=== PATIENT | male | born 1990 | race American Indian/Alaskan Native ===

== ENCOUNTER 2017-10-03 20:51 | Emergency (ER) | payer SELFPAY ==
[2017-10-03 22:09] VITALS: BP 112/72
[2017-10-03] MEDS ORDERED: NACL 0.9% 1000 ML 1,000 ML IV ONE (22:34)
[2017-10-03] MEDS ORDERED: DILAUDID IV ONE (22:34)
[2017-10-03] MEDS ORDERED: ZOFRAN IV ONE (22:35)
--- NOTE | 2017-10-03 22:39 | Emergency Department Report ---
HPI - General Chief Complaint: Urogenital-Male Time Seen by Provider: 10/03/17 22:29 - HPI HPI: 27-year-old [place] male coming in is left flank and left lower quadrant pain starting on this morning patient had a history of kidney stones. he states that her pain is accompanied by nausea, vomiting and urinary symptoms but no diarrhea. Patient has not taking any medication at home for his symptoms. he denies any exacerbating factors. he denies any alleviating factors. he denies any recent travel, or unusual foods. She denies any sick contacts. Patient had bilateral ureteral stents placed for ureteral stones and [place] this past year. MD Complaint: abdominal pain -: Gradual Location: Left flank Radiation: none Migration to: no migration Severity scale (0 -10): 10 Quality: sharp Improves With: nothing Associated Symptoms: nausea, vomiting, chills ED Past Medical Hx - Past Medical History Additional medical history: kidney problems - Surgical History Past Surgical History?: Yes Additional Surgical History: stents placed in both kidneys in Dec - Social History Smoking Status: Current Every Day Smoker Substance Use Type: None - Medications Home Medications: Home Medications Medication Instructions Recorded Confirmed Last Taken Type Sulfamethoxazole/Trimethoprim 1 each PO BID #14 tablet 10/04/17 Unknown Rx [Bactrim DS TAB] oxyCODONE /ACETAMINOPHEN [Percocet 1 tab PO Q6HR PRN #7 tablet 10/04/17 Unknown Rx 5/325] ED Review of Systems ROS: Stated complaint: URINATING BLOOD; STENT PLACED IN DEC Other details as noted in HPI Physical Exam - Physical Exam Vital Signs: Vital Signs 10/03/17 22:04 Temperature 97.4 F L Pulse Rate 78 Respiratory 18 Rate Blood Pressure 112/72 O2 Sat by Pulse 98 Oximetry Physical Exam: - Physical Exam Physical Exam: - General Limitations: No Limitations General appearance: alert, in no apparent distress, obese - Head Head exam: Present: atraumatic, normocephalic - Eye Eye exam: Present: normal appearance - ENT ENT exam: Present: mucous membranes moist - Neck Neck exam: Present: normal inspection - Respiratory Respiratory exam: Present: normal lung sounds bilaterally. Absent: respiratory distress - Cardiovascular Cardiovascular Exam: Present: normal rhythm, tachycardia. Absent: systolic murmur, diastolic murmur, rubs, gallop - GI/Abdominal GI/Abdominal exam: Present: soft, normal bowel sounds - Extremities Exam Extremities exam: Present: normal inspection - Back Exam Back exam: Present: normal inspection - Neurological Exam Neurological exam: Present: alert, oriented X3 - Psychiatric Psychiatric exam: normal affect and mood - Skin Skin exam: Present: warm, dry, intact, normal color. Absent: rash ED Course Vital Signs 10/03/17 22:04 Temperature 97.4 F L Pulse Rate 78 Respiratory 18 Rate Blood Pressure 112/72 O2 Sat by Pulse 98 Oximetry - Reevaluation(s) Reevaluation #1: 10/04/17 01:53 Patient is pain-free and wants to go home, advised to follow-up tomorrow with his urologist, he was understanding. No fever, no chills vital signs stables at disposition. Advised to return to ED symptoms worsen overnight. ED Medical Decision Making - Lab Data Result diagrams: 10/03/17 22:30 10/03/17 22:30 Critical care attestation.: If time is entered above; I have spent that time in minutes in the direct care of this critically ill patient, excluding procedure time. ED Disposition Clinical Impression: Kidney stone Disposition: DC-01 TO HOME OR SELFCARE Is pt being admited?: No Does the pt Need Aspirin: No Condition: Stable Instructions: Kidney Stones (ED) Prescriptions: oxyCODONE /ACETAMINOPHEN [Percocet 5/325] 1 tab PO Q6HR PRN #7 tablet PRN Reason: Pain Sulfamethoxazole/Trimethoprim [Bactrim DS TAB] 1 each PO BID #14 tablet Referrals: AMARILYS CORLEY MD [Primary Care Provider] - 3-5 Days MINO BAZAN MD [Staff Physician] - 24 Hours
[2017-10-03 22:44] LABS: Basophils % (Auto) 0.5 % (0.0-1.8); Eosinophils # (Auto) 0.1 K/mm3 (0.0-0.4); Eosinophils % (Auto) 1.4 % (0.0-4.3); Hematocrit 47.9 % (35.5-45.6); Hemoglobin 15.9 gm/dl (11.8-15.2); Lymphocytes # (Auto) 2.8 K/mm3 (1.2-5.4); Lymphocytes % (Auto) 32.1 % (13.4-35.0); Mean Corpuscular HGB Conc 33 % (32-34); Mean Corpuscular Hemoglobin 30 pg (28-32); Mean Corpuscular Volume 90 fl (84-94); Monocytes # (Auto) 0.5 K/mm3 (0.0-0.8); Monocytes % (Auto) 5.9 % (0.0-7.3); Platelet Count 268 K/mm3 (140-440); Red Blood Count 5.32 M/mm3 (3.65-5.03); Red Cell Distribution Width 12.9 % (13.2-15.2)
[2017-10-03 23:01] LABS: BUN/Creatinine Ratio 17; Blood Urea Nitrogen 15 mg/dL (9-20); Calcium 9.3 mg/dL (8.4-10.2); Hemolysis Index 13
[2017-10-03 23:35] LABS: Bacteria,Urine 1+ /HPF (Negative); Bilirubin,Urine NEG (Negative); Blood,Urine LG (Negative); Color,Urine Red (Yellow); Mucus,Urine 2+ /HPF; Urobilinogen,Urine < 2.0 mg/dL (<2.0)
[2017-10-03 23:40] LABS: RBC,Urine > 182.0 /HPF (0.0-6.0)
--- NOTE | 2017-10-04 01:01 | Cat Scan Report ---
FINAL REPORT PROCEDURE: CT ABDOMEN PELVIS WO/W CON TECHNIQUE: Computerized axial tomography of the abdomen and pelvis was performed without contrast followed by computerized axial tomography of the abdomen and pelvis after the IV injection of iodinated nonionic contrast. HISTORY: abd pain, h/o kidney stones, s/p stent, hematuria COMPARISON: No prior studies are available for comparison. FINDINGS: Lower Lung santizo: No focal abnormality seen. Upper Abdomen: The liver, the gallbladder, the spleen and adrenal glands as well as the pancreas are unremarkable. Kidneys, Ureters and Urinary bladder: On the right side there is a double ended pigtail catheter extending from the renal pelvis of the right kidney to the urinary bladder. There is no hydronephrosis on the right. No definite ureteral calculi are seen on the right. On the left there is a extrarenal pelvis present. There is also moderate left-sided hydronephrosis. A double ended pigtail catheter seen extending from the inferior aspect of the renal pelvis to the urinary bladder. There are 2 nonobstructing renal calculi in the left kidney, 1 in the upper 3rd 1 in the lower 3rd. These measure up to 4.2 x 2.1 millimeters. No definite ureteral calculi are visualized. Other than the distal ends of the pigtail stents urinary bladder is otherwise unremarkable. Retroperitoneum: The abdominal aorta appears normal. No aneurysm is visualized. Nonspecific subcentimeter lymph nodes are seen in the retroperitoneum. No pathologically enlarged lymph nodes are identified. Bowel: There is no evidence of bowel obstruction. There is no ascites or free intraperitoneal gas. The cecum projects into the pelvis otherwise is unremarkable. The colon shows no focal abnormality. The appendix is not visualized. Reproductive organs: Prostate gland does not appear to be enlarged. Other: No acute bony abnormalities are identified. Portion of intramedullary rodding depression screw device of the right hip is visualized. There is moderate lumbar scoliosis present convex to the right apex L3. IMPRESSION: Bilateral double ended pigtail catheters are seen extending from the renal pelvis of the right and left kidney to the urinary bladder. On the left there is moderate hydronephrosis. Small nonobstructing renal calculi are within the left kidney as described.. No ureteral calculi are seen on the left or right. Intramedullary dyan and compression screw device seen in the right hip. There is moderate lumbar scoliosis.
[2017-10-04] MEDS ORDERED: TORADOL IV ONE (01:12)
== END 2017-10-04 01:41 | disposition home or self-care (01) ==
LOC: ED 20:51
DX: N20.0 Calculus of kidney (principal); F17.200 Nicotine dependence, unspecified, uncomplicated
CPT/HCPCS: 36415; 74178; 80048; 81001; 85025; 96361; 96374; 96375; 99284; J1170; J1885; J2405; J7030; Q9967

== ENCOUNTER 2017-10-07 19:35 | Inpatient (IN) | payer OTHER ==
--- NOTE | 2017-10-07 19:54 | Emergency Department Report ---
ED General Adult HPI - General Chief complaint: Abdominal Pain Stated complaint: ABD PAIN Time Seen by Provider: 10/07/17 19:51 Source: patient, family, EMS (verbal report received from EMS.ems notes not available at time of chart dictation), RN notes reviewed, old records reviewed Mode of arrival: Stretcher Limitations: Altered Mental Status, Other (patient is a poor historian) - History of Present Illness Initial comments: This is a 27-year-old male who was previously on known to this provider. Patient has a history of bilateral renal stent, which he reports was placed by [facility] urology. He was placed secondary to obstructing stones. Patient is brought to the hospital by EMS for bilateral flank pain. The flank pain has been present for a few days. Patient was seen in this ER a few days ago for similar symptoms, had a noncontrast CT scan of the abdomen and pelvis which demonstrated appropriate stent placement, a urinalysis that suggests a urinary tract infection, and patient was discharged with Bactrim. As per his sample body builder, the patient has not been taking the antibiotics. Patient's pain got worse, and he called 911, EMS gave Zofran, Toradol, and normal saline. As per verbal report from EMS, the patient has been having breath-holding spells, secondary to pain, and had a few episodes of diminished consciousness secondary to breath-holding spells. EMS reported no unprovoked syncope. In the ER, the patient complains of shortness of breath, flank pain and weakness. He cannot describe radiation, exacerbating or relieving factors. He does report "I think I have a kidney infection." He is not homicidal or suicidal/testicular pain. -: Gradual Location: back Associated Symptoms: diaphoresis, loss of appetite, malaise, shortness of breath , syncope, weakness. denies: chest pain, cough, fever/chills, rash - Related Data Home Medications Medication Instructions Recorded Confirmed Last Taken Acetaminophen [Tylenol Extra 500 mg PO QID PRN 10/07/17 10/07/17 10/07/17 Strength] Allergies Allergy/AdvReac Type Severity Reaction Status Date / Time tramadol Allergy Vomiting Verified 10/03/17 22:03 ED Review of Systems ROS: Stated complaint: ABD PAIN Other details as noted in HPI Constitutional: denies: fever Eyes: denies: vision change ENT: denies: epistaxis Respiratory: shortness of breath Cardiovascular: denies: chest pain Gastrointestinal: denies: vomiting Genitourinary: denies: testicular pain Musculoskeletal: back pain Skin: denies: lesions Neurological: weakness Psychiatric: anxiety ED Past Medical Hx - Past Medical History Previous Medical History?: Yes Hx Kidney Stones: Yes Additional medical history: kidney problems - Surgical History Past Surgical History?: Yes Additional Surgical History: stents placed in both kidneys in Dec - Social History Smoking Status: Unknown if ever smoked - Medications Home Medications: Home Medications Medication Instructions Recorded Confirmed Last Taken Type Acetaminophen [Tylenol Extra 500 mg PO QID PRN 10/07/17 10/07/17 10/07/17 History Strength] ED Physical Exam - General Limitations: Other (patient appears distressed) General appearance: alert, in distress - Head Head exam: Present: atraumatic, normocephalic - Eye Eye exam: Present: normal appearance, EOMI - ENT ENT exam: Present: normal exam, normal orophraynx, mucous membranes moist, normal external ear exam - Neck Neck exam: Present: normal inspection, full ROM - Respiratory Respiratory exam: Present: normal lung sounds bilaterally. Absent: respiratory distress - Cardiovascular Cardiovascular Exam: Present: regular rate, normal rhythm, normal heart sounds. Absent: bradycardia, tachycardia, irregular rhythm, systolic murmur, diastolic murmur, rubs, gallop - GI/Abdominal GI/Abdominal exam: Present: soft, normal bowel sounds. Absent: distended, tenderness, guarding, rebound, rigid, pulsatile mass - Rectal Rectal exam: Present: normal inspection, other (escorted by nurse Livia tierney) - exam: Present: normal inspection - Extremities Exam Extremities exam: Present: normal inspection, full ROM, normal capillary refill. Absent: tenderness, pedal edema, joint swelling, calf tenderness - Back Exam Back exam: Present: normal inspection, full ROM, CVA tenderness (R), CVA tenderness (L). Absent: tenderness, paraspinal tenderness, vertebral tenderness - Neurological Exam Neurological exam: Present: alert, oriented X3, CN II-XII intact, other ( Extraocular movements intact. Tongue midline. No facial droop. Facial sensation intact to light touch in the V1, V2, V3 distribution bilaterally. 5 and 5 strength in 4 extremities.. Sensation is intact to light touch in 4 extremities.). Absent: motor sensory deficit - Psychiatric Psychiatric exam: Present: anxious - Skin Skin exam: Present: warm, dry, intact, normal color. Absent: rash ED Course Vital Signs 10/07/17 10/07/17 10/07/17 19:40 19:57 20:00 Temperature 98.7 F Pulse Rate 75 82 Respiratory 18 24 21 Rate Blood Pressure 147/73 161/88 O2 Sat by Pulse 98 97 100 Oximetry 10/07/17 10/07/17 10/07/17 20:10 20:15 20:56 Temperature Pulse Rate 86 Respiratory 20 10 L Rate Blood Pressure 130/99 140/81 O2 Sat by Pulse 100 Oximetry 10/07/17 10/07/17 10/07/17 21:00 21:15 21:30 Temperature Pulse Rate 84 86 74 Respiratory 14 15 17 Rate Blood Pressure 136/87 148/82 107/56 O2 Sat by Pulse 100 100 Oximetry 10/07/17 10/07/17 10/07/17 21:45 22:00 22:15 Temperature Pulse Rate 99 H 84 76 Respiratory 23 18 14 Rate Blood Pressure 127/73 134/88 130/90 O2 Sat by Pulse 100 99 Oximetry 10/07/17 10/07/17 10/07/17 22:30 22:45 23:00 Temperature Pulse Rate 98 H 94 H 100 H Respiratory 12 14 14 Rate Blood Pressure 135/77 129/87 135/74 O2 Sat by Pulse 99 98 89 Oximetry - Reevaluation(s) Reevaluation #1: 10/07/17 21:30 Differential diagnosis, including but not limited to: Pneumonia, pyelonephritis , breath holding spells, urinary tract infection, drug use, anxiety, conversion disorder Assessment and plan: 27-year-old male, history of bilateral renal stent, noncontrast CT scan of the abdomen and pelvis a few days ago demonstrated appropriate placement of renal stent, left-sided hydronephrosis, moderate, with no obstruction, urinalysis that suggested urinary tract infection, discharge and antibiotics but noncompliant with worsening symptoms. Patient is currently alert name, location and month, follows commands, has a GCS of 15, with an NIH score of 0. Case was discussed with consulting urology specialist contract driver, Dr. Mckee, I described the patient's physical exam, presentation, recent CT scan of the abdomen and pelvis results, and he indicated that the patient did not require any emergent urologic intervention or consultation at this time, he did indicate that if the patient was found to have worsening hydronephrosis that he might require a percutaneous nephrostomy to facilitate drainage. Patient was initially having some breath holding spells in the ER, it was initially unresponsive intermittently, although this may been behavioral. Patient was noted to be speaking to nursing staff and to sample body builder upon arrival. Therefore , a noncontrast CT scan of the abdomen and pelvis with reordered along with a noncontrast CT scan of the brain which was negative. Patient was given Toradol prior to my arrival, therefore he was treated with fentanyl, hydromorphone, and lidocaine. Reevaluation #2: 10/07/17 22:[address] scan of the abdomen and pelvis: IMPRESSION: Urinary stent extending from the renal pelvis on each side to the urinary bladder, similar to the prior exam. Left renal stone. Improvement of left hydronephrosis.. With Reevaluation #3: 10/07/17 23:48 Attempted oral challenge with patient, patient failed, vomited up acetaminophen , and 300 mL of fluid. He is also somewhat unsteady and unable to walk with a steady gait. He is therefore not suitable for discharge at this time, especially after getting normal saline IV fluid resuscitation, as well as 8 mg of Zofran in total. Additional Reglan is ordered, patient will be admitted to the hospital for pyelonephritis, inability to tolerate liquid feeds, Hospital physician has been paged to arrange admission. Reevaluation #4: 10/07/17 23:59 Case is presented to the Hospital physician, Dr. Qiu, she accepts the patient to the medical service. ED Medical Decision Making - Lab Data Result diagrams: 10/07/17 20:10 10/07/17 20:10 Vital Signs 10/07/17 10/07/17 10/07/17 19:40 19:57 20:00 Temperature 98.7 F Pulse Rate 75 82 Respiratory 18 24 21 Rate Blood Pressure 147/73 161/88 O2 Sat by Pulse 98 97 100 Oximetry 10/07/17 20:10 Temperature Pulse Rate Respiratory 20 Rate Blood Pressure O2 Sat by Pulse Oximetry Lab Results 10/07/17 10/07/17 10/07/17 Range/Units 20:10 20:10 20:10 WBC 10.3 (4.5-11.0) K/mm3 RBC 4.84 (3.65-5.03) M/mm3 Hgb 14.3 (11.8-15.2) gm/dl Hct 44.0 (35.5-45.6) % MCV 91 (84-94) fl MCH 30 (28-32) pg MCHC 33 (32-34) % RDW 12.8 L (13.2-15.2) % Plt Count 278 (140-440) K/mm3 Lymph % (Auto) 20.4 (13.4-35.0) % [place] % (Auto) 4.6 (0.0-7.3) % Eos % (Auto) 0.6 (0.0-4.3) % Baso % (Auto) 0.3 (0.0-1.8) % Lymph # 2.1 (1.2-5.4) K/mm3 [place] # 0.5 (0.0-0.8) K/mm3 Eos # 0.1 (0.0-0.4) K/mm3 Baso # 0.0 (0.0-0.1) K/mm3 Seg Neutrophils % 74.1 H (40.0-70.0) % Seg Neutrophils # 7.6 (1.8-7.7) K/mm3 Sodium 142 (137-145) mmol/L Potassium 3.4 L (3.6-5.0) mmol/L Chloride 102.7 (98-107) mmol/L Carbon Dioxide 21 L (22-30) mmol/L Anion Gap 22 mmol/L BUN 17 (9-20) mg/dL Creatinine 0.8 (0.8-1.5) mg/dL Estimated GFR > 60 ml/min BUN/Creatinine Ratio 21 % Glucose 128 H (75-100) mg/dL Lactic Acid (0.7-2.0) mmol/L Calcium 8.9 (8.4-10.2) mg/dL Total Creatine Kinase 124 (55-170) units/L Urine Color (Yellow) Urine Turbidity (Clear) Urine pH (5.0-7.0) Ur Specific [place] (1.003-1.030) Urine Protein (Negative) mg/dL Urine Glucose (UA) (Negative) mg/dL Urine Ketones (Negative) mg/dL Urine Blood (Negative) Urine Nitrite (Negative) Urine Bilirubin (Negative) Urine Urobilinogen (<2.0) mg/dL Ur Leukocyte Esterase (Negative) Urine WBC (Auto) (0.0-6.0) /HPF Urine RBC (Auto) (0.0-6.0) /HPF Urine Bacteria (Auto) (Negative) /HPF Urine Mucus /HPF Salicylates (2.8-20.0) mg/dL Urine Opiates Screen Presumptive negative Urine Methadone Screen Presumptive negative Acetaminophen (10.0-30.0) ug/mL Ur Barbiturates Screen Presumptive negative Ur Phencyclidine Scrn Presumptive negative Ur Amphetamines Screen Presumptive positive U Benzodiazepines Scrn Presumptive negative Urine Cocaine Screen Presumptive negative U Marijuana (THC) Screen Presumptive positive Drugs of Abuse Note Disclamer Plasma/Serum Alcohol (0-0.07) % 10/07/17 10/07/17 10/07/17 Range/Units 20:10 20:10 20:10 WBC (4.5-11.0) K/mm3 RBC (3.65-5.03) M/mm3 Hgb (11.8-15.2) gm/dl Hct (35.5-45.6) % MCV (84-94) fl MCH (28-32) pg MCHC (32-34) % RDW (13.2-15.2) % Plt Count (140-440) K/mm3 Lymph % (Auto) (13.4-35.0) % [place] % (Auto) (0.0-7.3) % Eos % (Auto) (0.0-4.3) % Baso % (Auto) (0.0-1.8) % Lymph # (1.2-5.4) K/mm3 [place] # (0.0-0.8) K/mm3 Eos # (0.0-0.4) K/mm3 Baso # (0.0-0.1) K/mm3 Seg Neutrophils % (40.0-70.0) % Seg Neutrophils # (1.8-7.7) K/mm3 Sodium (137-145) mmol/L Potassium (3.6-5.0) mmol/L Chloride (98-107) mmol/L Carbon Dioxide (22-30) mmol/L Anion Gap mmol/L BUN (9-20) mg/dL Creatinine (0.8-1.5) mg/dL Estimated GFR ml/min BUN/Creatinine Ratio % Glucose (75-100) mg/dL Lactic Acid 2.00 (0.7-2.0) mmol/L Calcium (8.4-10.2) mg/dL Total Creatine Kinase (55-170) units/L Urine Color (Yellow) Urine Turbidity (Clear) Urine pH (5.0-7.0) Ur Specific [place] (1.003-1.030) Urine Protein (Negative) mg/dL Urine Glucose (UA) (Negative) mg/dL Urine Ketones (Negative) mg/dL Urine Blood (Negative) Urine Nitrite (Negative) Urine Bilirubin (Negative) Urine Urobilinogen (<2.0) mg/dL Ur Leukocyte Esterase (Negative) Urine WBC (Auto) (0.0-6.0) /HPF Urine RBC (Auto) (0.0-6.0) /HPF Urine Bacteria (Auto) (Negative) /HPF Urine Mucus /HPF Salicylates < 0.3 L (2.8-20.0) mg/dL Urine Opiates Screen Urine Methadone Screen Acetaminophen < 5.0 L (10.0-30.0) ug/mL Ur Barbiturates Screen Ur Phencyclidine Scrn Ur Amphetamines Screen U Benzodiazepines Scrn Urine Cocaine Screen U Marijuana (THC) Screen Drugs of Abuse Note Plasma/Serum Alcohol (0-0.07) % 10/07/17 10/07/17 Range/Units 20:10 20:14 WBC (4.5-11.0) K/mm3 RBC (3.65-5.03) M/mm3 Hgb (11.8-15.2) gm/dl Hct (35.5-45.6) % MCV (84-94) fl MCH (28-32) pg MCHC (32-34) % RDW (13.2-15.2) % Plt Count (140-440) K/mm3 Lymph % (Auto) (13.4-35.0) % [place] % (Auto) (0.0-7.3) % Eos % (Auto) (0.0-4.3) % Baso % (Auto) (0.0-1.8) % Lymph # (1.2-5.4) K/mm3 [place] # (0.0-0.8) K/mm3 Eos # (0.0-0.4) K/mm3 Baso # (0.0-0.1) K/mm3 Seg Neutrophils % (40.0-70.0) % Seg Neutrophils # (1.8-7.7) K/mm3 Sodium (137-145) mmol/L Potassium (3.6-5.0) mmol/L Chloride (98-107) mmol/L Carbon Dioxide (22-30) mmol/L Anion Gap mmol/L BUN (9-20) mg/dL Creatinine (0.8-1.5) mg/dL Estimated GFR ml/min BUN/Creatinine Ratio % Glucose (75-100) mg/dL Lactic Acid (0.7-2.0) mmol/L Calcium (8.4-10.2) mg/dL Total Creatine Kinase (55-170) units/L Urine Color [place] (Yellow) Urine Turbidity Clear (Clear) Urine pH 6.0 (5.0-7.0) Ur Specific [place] 1.025 (1.003-1.030) Urine Protein 100 mg/dl (Negative) mg/dL Urine Glucose (UA) Neg (Negative) mg/dL Urine Ketones Tr (Negative) mg/dL Urine Blood Lg (Negative) Urine Nitrite Neg (Negative) Urine Bilirubin Neg (Negative) Urine Urobilinogen < 2.0 (<2.0) mg/dL Ur Leukocyte Esterase Mod (Negative) Urine WBC (Auto) 115.0 H (0.0-6.0) /HPF Urine RBC (Auto) > 182.0 (0.0-6.0) /HPF Urine Bacteria (Auto) 1+ (Negative) /HPF Urine Mucus 3+ /HPF Salicylates (2.8-20.0) mg/dL Urine Opiates Screen Urine Methadone Screen Acetaminophen (10.0-30.0) ug/mL Ur Barbiturates Screen Ur Phencyclidine Scrn Ur Amphetamines Screen U Benzodiazepines Scrn Urine Cocaine Screen U Marijuana (THC) Screen Drugs of Abuse Note Plasma/Serum Alcohol < 0.01 (0-0.07) % - EKG Data -: EKG Interpreted by Me - EKG Data When compared to previous EKG there are: previous EKG unavailable 10/07/17 21:33 Normal sinus, 93 beats minute, sinus arrhythmia, high left ventricular voltage, abnormal EKG, not morphologically consistent with ST elevation myocardial infarction. - Radiology Data Radiology results: report reviewed, image reviewed interpreted by me: X-ray of the chest, interpreted by me: No acute disease eport Referring Physician: SIMBA MILLER Patient Name: FRANSICO MELGAR Date of : 1990 Sex: Male Report Date: 2017-10-04 Report Status: Finalized Findings [facility] [address] [place] [address] Cat Scan Report Signed Patient: FRANSICO MELGAR MR#: [id number] : 1990 Acct:[id number] Age/Sex: 27 / M ADM Date: 10/03/17 Loc: ED Attending Dr: Ordering Physician: SIMBA MILLER MD Date of Service: 10/04/17 Procedure(s): CT abdomen pelvis wo/w con Accession Number(s): [id number] cc: SIMBA MILLER MD FINAL REPORT PROCEDURE: CT ABDOMEN PELVIS WO/W CON TECHNIQUE: Computerized axial tomography of the abdomen and pelvis was performed without contrast followed by computerized axial tomography of the abdomen and pelvis after the IV injection of iodinated nonionic contrast. HISTORY: abd pain, h/o kidney stones, s/p stent, hematuria COMPARISON: No prior studies are available for comparison. FINDINGS: Lower Lung santizo: No focal abnormality seen. Upper Abdomen: The liver, the gallbladder, the spleen and adrenal glands as well as the pancreas are unremarkable. Kidneys, Ureters and Urinary bladder: On the right side there is a double ended pigtail catheter extending from the renal pelvis of the right kidney to the urinary bladder. There is no hydronephrosis on the right. No definite ureteral calculi are seen on the right. On the left there is a extrarenal pelvis present. There is also moderate left-sided hydronephrosis. A double ended pigtail catheter seen extending from the inferior aspect of the renal pelvis to the urinary bladder. There are 2 nonobstructing renal calculi in the left kidney, 1 in the upper 3rd 1 in the lower 3rd. These measure up to 4.2 x 2.1 millimeters. No definite ureteral calculi are visualized. Other than the distal ends of the pigtail stents urinary bladder is otherwise unremarkable. Retroperitoneum: The abdominal aorta appears normal. No aneurysm is visualized. Nonspecific subcentimeter lymph nodes are seen in the retroperitoneum. No pathologically enlarged lymph nodes are identified. Bowel: There is no evidence of bowel obstruction. There is no ascites or free intraperitoneal gas. The cecum projects into the pelvis otherwise is unremarkable. The colon shows no focal abnormality. The appendix is not visualized. Reproductive organs: Prostate gland does not appear to be enlarged. Other: No acute bony abnormalities are identified. Portion of intramedullary rodding depression screw device of the right hip is visualized. There is moderate lumbar scoliosis present convex to the right apex L3. IMPRESSION: Bilateral double ended pigtail catheters are seen extending from the renal pelvis of the right and left kidney to the urinary bladder. On the left there is moderate hydronephrosis. Small nonobstructing renal calculi are within the left kidney as described.. No ureteral calculi are seen on the left or right. Intramedullary dyan and compression screw device seen in the right hip. There is moderate lumbar scoliosis. Transcribed By: DFN Dictated By: MATT RIOS MD Electronically Authenticated By: MATT RIOS MD Signed Date/Time: 10/04/[address] scan of the brain: Interpreted by radiology: No acute disease Print Report Referring Physician: AMARILYS ODEN Patient Name: FRANSICO MELGAR Date of : 1990 Sex: Male Report Date: 2017-10-07 Report Status: [place] [address] Cat Scan Report Signed Patient: FRANSICO MELGAR MR#: [id number] : 1990 Acct:[id number] Age/Sex: 27 / M ADM Date: 10/07/17 Loc: ED Attending Dr: Ordering Physician: AMARILYS ODEN MD Date of Service: 10/07/17 Procedure(s): CT abdomen pelvis wo con Accession Number(s): [id number] cc: AMARILYS ODEN MD FINAL REPORT PROCEDURE: CT ABDOMEN PELVIS WO CON TECHNIQUE: Computerized axial tomography of the abdomen and pelvis was performed without intravenous contrast. HISTORY: abd pain ? stent dislodgement COMPARISON: October 04, 2017 FINDINGS: Visualized lower thorax: No significant abnormality. Liver: Normal size and attenuation. Spleen: Normal size and attenuation. Gallbladder and biliary system: Normal. Pancreas: Normal. Adrenals: Normal. Kidneys: Upper pole stone left kidney measuring 0.4 cm. There are stents extending from the renal pelvises on each side to the urinary bladder. There is mild left hydronephrosis with improvement compared to the prior study GI tract: No dilated loops of large or small bowel. Appendix is not visualized. Lymph nodes and mesentery: Normal. Vasculature: Normal. Bladder: Stents on each side.. Reproductive organs: Normal. Peritoneum: No free fluid. Musculoskeletal structures: Fixation screw and dyan in the right proximal femur. Other: None. IMPRESSION: Urinary stent extending from the renal pelvis on each side to the urinary bladder, similar to the prior exam. Left renal stone. Improvement of left hydronephrosis.. With Transcribed By: BRP Dictated By: JAYLAN ROQUE MD Electronically Authenticated By: JAYLAN ROQUE MD Signed Date/Time: 10/07/17 3721 Critical care attestation.: If time is entered above; I have spent that time in minutes in the direct care of this critically ill patient, excluding procedure time. ED Disposition Clinical Impression: Pyelonephritis, Nausea & vomiting Disposition: -09 OP ADMIT IP TO THIS HOSP Is pt being admited?: Yes Condition: Good Referrals: PRIMARY CAREMD [Primary Care Provider] - 3-5 Days
[2017-10-07] MEDS ORDERED: DILAUDID IV ONE (20:03)
[2017-10-07] MEDS ORDERED: ROCEPHIN/NS 1 GM/50 ML 1 GM/50 ML BAG IV ONE (20:08)
[2017-10-07] MEDS ORDERED: LACTATED RINGERS 1,000 ML IV ONE (20:12)
[2017-10-07] MEDS ORDERED: cefTRIAXone 1 GM in NACL 0.9% 20 ML IV ONE (20:15)
[2017-10-07 20:30] LABS: Basophils % (Auto) 0.3 % (0.0-1.8); Eosinophils # (Auto) 0.1 K/mm3 (0.0-0.4); Eosinophils % (Auto) 0.6 % (0.0-4.3); Hemoglobin 14.3 gm/dl (11.8-15.2); Lymphocytes # (Auto) 2.1 K/mm3 (1.2-5.4); Lymphocytes % (Auto) 20.4 % (13.4-35.0); Mean Corpuscular HGB Conc 33 % (32-34); Mean Corpuscular Hemoglobin 30 pg (28-32); Mean Corpuscular Volume 91 fl (84-94); Monocytes # (Auto) 0.5 K/mm3 (0.0-0.8); Monocytes % (Auto) 4.6 % (0.0-7.3); Platelet Count 278 K/mm3 (140-440); Red Blood Count 4.84 M/mm3 (3.65-5.03); Red Cell Distribution Width 12.8 % (13.2-15.2)
[2017-10-07 20:38] LABS: Bacteria,Urine 1+ /HPF (Negative); Bilirubin,Urine NEG (Negative); Blood,Urine LG (Negative); Color,Urine Amber (Yellow); Mucus,Urine 3+ /HPF; Urobilinogen,Urine < 2.0 mg/dL (<2.0)
[2017-10-07 20:40] LABS: RBC,Urine > 182.0 /HPF (0.0-6.0)
[2017-10-07 20:44] LABS: Benzodiazepines Screen,Urine PRESUMPTIVE NEGATIVE; Cocaine Screen,Urine PRESUMPTIVE NEGATIVE; Methadone Screen,Urine PRESUMPTIVE NEGATIVE; Opiate Screen,Urine PRESUMPTIVE NEGATIVE
[2017-10-07 20:46] LABS: BUN/Creatinine Ratio 21; Blood Urea Nitrogen 17 mg/dL (9-20); Calcium 8.9 mg/dL (8.4-10.2); Hemolysis Index 4
[2017-10-07 20:47] LABS: Amphetamine Screen,Urine PRESUMPTIVE POSITIVE; Cannabinoid Screen,Urine PRESUMPTIVE POSITIVE
--- NOTE | 2017-10-07 21:23 | Cat Scan Report ---
FINAL REPORT PROCEDURE: CT HEAD/BRAIN WO CON TECHNIQUE: Computerized tomography of the head was performed without contrast material. HISTORY: ams syncope COMPARISON: No prior studies are available for comparison. FINDINGS: Skull and scalp: Normal. Paranasal sinuses: Normal. Ventricles and subarachnoid spaces: Normal. Cerebrum: No evidence of hemorrhage, acute infarction or mass . Cerebellum and brainstem: No evidence of hemorrhage, acute infarction or mass. Vasculature: Normal. Comments: None. IMPRESSION: Normal Examination
[2017-10-07] MEDS ORDERED: SUBLIMAZE IV ONE (21:24)
[2017-10-07] MEDS ORDERED: XYLOCAINE CARDIAC IV ONE (21:26)
--- NOTE | 2017-10-07 21:32 | XRay Report ---
FINAL REPORT PROCEDURE: XR CHEST 1V AP TECHNIQUE: Chest radiograph anteroposterior view. CPT 20040 HISTORY: dyspnea, fainting COMPARISON: No prior studies are available for comparison. FINDINGS: Heart: Normal. Mediastinum/Vessels: Normal. Lungs/Pleural space: Normal. Bony thorax: No acute osseous abnormality. Life support devices: There are monitoring devices.. IMPRESSION: No acute cardiopulmonary abnormality.
--- NOTE | 2017-10-07 21:56 | Cat Scan Report ---
FINAL REPORT PROCEDURE: CT ABDOMEN PELVIS WO CON TECHNIQUE: Computerized axial tomography of the abdomen and pelvis was performed without intravenous contrast. HISTORY: abd pain ? stent dislodgement COMPARISON: October 04, 2017 FINDINGS: Visualized lower thorax: No significant abnormality. Liver: Normal size and attenuation. Spleen: Normal size and attenuation. Gallbladder and biliary system: Normal. Pancreas: Normal. Adrenals: Normal. Kidneys: Upper pole stone left kidney measuring 0.4 cm. There are stents extending from the renal pelvises on each side to the urinary bladder. There is mild left hydronephrosis with improvement compared to the prior study GI tract: No dilated loops of large or small bowel. Appendix is not visualized. Lymph nodes and mesentery: Normal. Vasculature: Normal. Bladder: Stents on each side.. Reproductive organs: Normal. Peritoneum: No free fluid. Musculoskeletal structures: Fixation screw and dyan in the right proximal femur. Other: None. IMPRESSION: Urinary stent extending from the renal pelvis on each side to the urinary bladder, similar to the prior exam. Left renal stone. Improvement of left hydronephrosis.. With
[2017-10-07] MEDS ORDERED: NACL 0.9% 1000 ML 1,000 ML ONE (22:12)
[2017-10-07] MEDS ORDERED: NACL 0.9% 1000 ML 1,000 ML IV ONE (22:13)
[2017-10-07] MEDS ORDERED: TYLENOL PO ONE (22:58)
[2017-10-07] MEDS ORDERED: NACL 0.9% INFILTRATI ONE (23:00)
[2017-10-07] MEDS ORDERED: XYLOCAINE 1% INFILTRATI ONE (23:00)
[2017-10-07] MEDS ORDERED: REGLAN IV ONE (23:48)
--- NOTE | 2017-10-07 23:54 | History and Physical Report ---
History of Present Illness Date of examination: 10/08/17 History of present illness: 27-year-old man with a history of kidney stones, status post bilateral stents to the kidney, see emergency room with complaint of bilateral flank pain which she describes as sharp, constant, no radiation, intensity 10 over 10, cannot identify exacerbating or relieving factors. Also complaining of urinary frequency. He was diagnosed with pyelonephritis, the patient was given a prescription for Bactrim but he has not filled his prescription Review of systems Constitutional: no weight loss, chills Ears, eyes, nose, mouth and throat: no nasal congestion, no nasal discharge, no sinus pressure, no vision change, no red eye. Neck: No neck pain or rigidity. Cardiovascular: no palpitations Respiratory: No cough, shortness of breath Gastrointestinal: no abdominal pain, hematochezia Genitourinary : no dysuria, frequency , no hematuria Musculoskeletal: no joint swelling or muscle ache Integumentary: no rash, no pruritis Neurological: no parathesias, no numbness, no focal weakness Endocrine: no cold or heat intolerance, no polyuria or polydipsia Hematologic/Lymphatic: no easy bruising, no easy bleeding, no gland swelling Allergic/Immunologic: no urticaria, no angioedema. help people get of the right positions PAST MEDICAL HISTORY: Kidney stones PAST SURGICAL HISTORY: None SOCIAL HISTORY: Admit to tobacco, marijuana, social alcohol FAMILY HISTORY: Hypertension Medications and Allergies Allergies Allergy/AdvReac Type Severity Reaction Status Date / Time tramadol Allergy Vomiting Verified 10/03/17 22:03 Home Medications Medication Instructions Recorded Confirmed Last Taken Type Acetaminophen [Tylenol Extra 500 mg PO QID PRN 10/07/17 10/07/17 10/07/17 History Strength] Sulfamethoxazole/Trimethoprim 1 each PO BID #10 tablet 10/09/17 Unknown Rx [Bactrim DS TAB] oxyCODONE /ACETAMINOPHEN [Percocet 1 tab PO QHS #5 tablet 10/09/17 Unknown Rx 5/325] Exam - Physical Exam Narrative exam: Gen. appearance: Patient lying in bed, no apparent distress HEENT: Normocephalic, atraumatic, pupils equally round and reactive to light, extraocular movement intact, and no sclericterus,. No JVD or thyromegaly or nodule,neck supple, no carotid bruit ,mucous membranes moist, no exudate or erythema Heart: S1, S2, regular rate and rhythm Lungs: Clear to auscultation bilaterally, breathing comfortable Abdomen: Positive bowel sounds, nontender, nondistended, no organomegaly Extremity: No edema, cyanosis, clubbing Skin: No rash, nodules, warm, dry Neuro: Oriented 3, cranial nerves II-12 intact, speech is fluent, motor and sensory intact - Constitutional Vitals: Temp Pulse Resp BP Pulse Ox 98.7 F 100 H 14 135/74 89 10/07/17 19:40 10/07/17 23:00 10/07/17 23:00 10/07/17 23:00 10/07/17 23:00 Results - Labs CBC & Chem 7: 10/09/17 08:41 10/09/17 08:41 Labs: Abnormal lab results 10/07/17 10/07/17 10/07/17 Range/Units 20:10 20:10 20:10 RDW 12.8 L (13.2-15.2) % Seg Neutrophils % 74.1 H (40.0-70.0) % Potassium 3.4 L (3.6-5.0) mmol/L Carbon Dioxide 21 L (22-30) mmol/L Glucose 128 H (75-100) mg/dL Urine WBC (Auto) (0.0-6.0) /HPF Salicylates < 0.3 L (2.8-20.0) mg/dL Acetaminophen (10.0-30.0) ug/mL 10/07/17 10/07/17 Range/Units 20:10 20:14 RDW (13.2-15.2) % Seg Neutrophils % (40.0-70.0) % Potassium (3.6-5.0) mmol/L Carbon Dioxide (22-30) mmol/L Glucose (75-100) mg/dL Urine WBC (Auto) 115.0 H (0.0-6.0) /HPF Salicylates (2.8-20.0) mg/dL Acetaminophen < 5.0 L (10.0-30.0) ug/mL - Imaging and Cardiology Chest x-ray: image reviewed CT scan - abdomen: report reviewed CT Scan - head: report reviewed CT scan - pelvis: report reviewed Assessment and Plan Assessment Pyelonephritis with hydro Status post bilateral kidney stents Plan Admit to medicine Start IV Rocephin, Percocet, DVT prophylaxis
[2017-10-08] MEDS ORDERED: TYLENOL PO PRN (05:59)
[2017-10-08] MEDS ORDERED: ZOFRAN IV PRN (05:59)
[2017-10-08] MEDS ORDERED: SODIUM CHLORIDE FLUSH SYRINGE 10 ML IV PRN (05:59)
[2017-10-08] MEDS: PERCOCET 5/325 PO PRN ×2 (08:40→22:19)
[2017-10-08] MEDS: LOVENOX SUB-Q SCH (10:00)
[2017-10-08] MEDS ORDERED: ROCEPHIN/NS 1 GM/50 ML 1 GM/50 ML BAG IV SCH (10:00)
[2017-10-08] MEDS: SODIUM CHLORIDE FLUSH SYRINGE 10 ML IV SCH ×2 (10:01→22:26)
[2017-10-08] MEDS: cefTRIAXone 1 GM in NACL 0.9% 20 ML IV SCH (10:01)
[2017-10-08] MEDS ORDERED: K-DUR PO ONE (15:20)
--- NOTE | 2017-10-08 15:26 | Progress Note ---
<GERALDO PAREDES - Last Filed: 10/09/17 11:41> Assessment and Plan Assessment and plan: 27-year-old man with a history of kidney stones, status post bilateral stents to the kidney, presented to emergency room with complaint of bilateral flank pain which he describes as sharp, constant, no radiation, intensity 10 over 10, cannot identify exacerbating or relieving factors. Also complaining of urinary frequency. He was diagnosed with pyelonephritis, the patient was given a prescription for Bactrim but he has not filled his prescription Pyelonephritis with hydronephrosis CT abdomen revealed Urinary stent extending from the renal pelvis on each side to the urinary bladder, similar to the prior exam. Left renal stone. Improvement of left hydronephrosis Follow cultures, continue antibiotics, supportive care Hypokalemia K replaced Status post bilateral kidney stents DVT prophylaxis SCDs History Interval history: Patient seen and examined. He denies CP, sob, NV. Labs and nursing notes reviewed Hospitalist Physical - Constitutional Vitals: Temp Pulse Resp BP Pulse Ox 97.7 F 88 20 99/58 97 10/08/17 07:40 10/08/17 07:40 10/08/17 07:40 10/08/17 07:40 10/08/17 07:40 General appearance: Present: no acute distress, well-nourished - EENT Eyes: Present: PERRL, EOM intact ENT: hearing intact, clear oral mucosa - Neck Neck: Present: supple, normal ROM - Respiratory Respiratory effort: normal Respiratory: bilateral: CTA - Cardiovascular Rhythm: regular Heart Sounds: Present: S1 & S2 - Extremities Extremities: no ischemia, No edema - Abdominal General gastrointestinal: soft, non-tender, non-distended - Integumentary Integumentary: Present: clear, warm, dry - Psychiatric Psychiatric: appropriate mood/affect, intact judgment & insight, cooperative - Neurologic Neurologic: CNII-XII intact, moves all extremities - Allied Health Allied health notes reviewed: nursing Results - Labs CBC & Chem 7: 10/09/17 08:41 10/09/17 08:41 Labs: Laboratory Last Values WBC 10.3 K/mm3 (4.5-11.0) 10/07/17 20:10 RBC 4.84 M/mm3 (3.65-5.03) 10/07/17 20:10 Hgb 14.3 gm/dl (11.8-15.2) 10/07/17 20:10 Hct 44.0 % (35.5-45.6) 10/07/17 20:10 MCV 91 fl (84-94) 10/07/17 20:10 MCH 30 pg (28-32) 10/07/17 20:10 MCHC 33 % (32-34) 10/07/17 20:10 RDW 12.8 % (13.2-15.2) L 10/07/17 20:10 Plt Count 278 K/mm3 (140-440) 10/07/17 20:10 Lymph % (Auto) 20.4 % (13.4-35.0) 10/07/17 20:10 [place] % (Auto) 4.6 % (0.0-7.3) 10/07/17 20:10 Eos % (Auto) 0.6 % (0.0-4.3) 10/07/17 20:10 Baso % (Auto) 0.3 % (0.0-1.8) 10/07/17 20:10 Lymph # 2.1 K/mm3 (1.2-5.4) 10/07/17 20:10 [place] # 0.5 K/mm3 (0.0-0.8) 10/07/17 20:10 Eos # 0.1 K/mm3 (0.0-0.4) 10/07/17 20:10 Baso # 0.0 K/mm3 (0.0-0.1) 10/07/17 20:10 Seg Neutrophils % 74.1 % (40.0-70.0) H 10/07/17 20:10 Seg Neutrophils # 7.6 K/mm3 (1.8-7.7) 10/07/17 20:10 Sodium 142 mmol/L (137-145) 10/07/17 20:10 Potassium 3.4 mmol/L (3.6-5.0) L 10/07/17 20:10 Chloride 102.7 mmol/L (98-107) 10/07/17 20:10 Carbon Dioxide 21 mmol/L (22-30) L 10/07/17 20:10 Anion Gap 22 mmol/L 10/07/17 20:10 BUN 17 mg/dL (9-20) 10/07/17 20:10 Creatinine 0.8 mg/dL (0.8-1.5) 10/07/17 20:10 Estimated GFR > 60 ml/min 10/07/17 20:10 BUN/Creatinine Ratio 21 % 10/07/17 20:10 Glucose 128 mg/dL (75-100) H 10/07/17 20:10 Lactic Acid 2.00 mmol/L (0.7-2.0) 10/07/17 20:10 Calcium 8.9 mg/dL (8.4-10.2) 10/07/17 20:10 Total Creatine Kinase 124 units/L (55-170) 10/07/17 20:10 Urine Color Colleen (Yellow) 10/07/17 20:14 Urine Turbidity Clear (Clear) 10/07/17 20:14 Urine pH 6.0 (5.0-7.0) 10/07/17 20:14 Ur Specific [place] 1.025 (1.003-1.030) 10/07/17 20:14 Urine Protein 100 mg/dl mg/dL (Negative) 10/07/17 20:14 Urine Glucose (UA) Neg mg/dL (Negative) 10/07/17 20:14 Urine Ketones Tr mg/dL (Negative) 10/07/17 20:14 Urine Blood Lg (Negative) 10/07/17 20:14 Urine Nitrite Neg (Negative) 10/07/17 20:14 Urine Bilirubin Neg (Negative) 10/07/17 20:14 Urine Urobilinogen < 2.0 mg/dL (<2.0) 10/07/17 20:14 Ur Leukocyte Esterase Mod (Negative) 10/07/17 20:14 Urine WBC (Auto) 115.0 /HPF (0.0-6.0) H 10/07/17 20:14 Urine RBC (Auto) > 182.0 /HPF (0.0-6.0) 10/07/17 20:14 Urine Bacteria (Auto) 1+ /HPF (Negative) 10/07/17 20:14 Urine Mucus 3+ /HPF 10/07/17 20:14 Salicylates < 0.3 mg/dL (2.8-20.0) L 10/07/17 20:10 Urine Opiates Screen Presumptive negative 10/07/17 20:10 Urine Methadone Screen Presumptive negative 10/07/17 20:10 Acetaminophen < 5.0 ug/mL (10.0-30.0) L 10/07/17 20:10 Ur Barbiturates Screen Presumptive negative 10/07/17 20:10 Ur Phencyclidine Scrn Presumptive negative 10/07/17 20:10 Ur Amphetamines Screen Presumptive positive 10/07/17 20:10 U Benzodiazepines Scrn Presumptive negative 10/07/17 20:10 Urine Cocaine Screen Presumptive negative 10/07/17 20:10 U Marijuana (THC) Screen Presumptive positive 10/07/17 20:10 Drugs of Abuse Note Disclamer 10/07/17 20:10 Plasma/Serum Alcohol < 0.01 % (0-0.07) 10/07/17 20:10 <EWELINA CARABALLO - Last Filed: 10/09/17 16:51> History Interval history: I saw and evaluated the patient. I agree with the findings and the plan of care as documented in the Nurse Practitioner's~note, with the following corrections and additions. Patient seen and evaluated medical records reviewed Agree with the above documentation and management Patient's recent medical records from [facility] requested Continue current antibiotics follow cultures Plan of care reviewed with the patient and the family member at the bedside as well as the nurse Hospitalist Physical - Constitutional Vitals: Temp Pulse Resp BP Pulse Ox 98.5 F 64 20 103/66 98 10/09/17 07:35 10/09/17 07:35 10/09/17 07:35 10/09/17 07:35 10/09/17 07:35 Results - Labs CBC & Chem 7: 10/09/17 08:41 10/09/17 08:41 Labs: Laboratory Last Values WBC 5.5 K/mm3 (4.5-11.0) 10/09/17 08:41 RBC 4.57 M/mm3 (3.65-5.03) 10/09/17 08:41 Hgb 13.6 gm/dl (11.8-15.2) 10/09/17 08:41 Hct 41.7 % (35.5-45.6) 10/09/17 08:41 MCV 91 fl (84-94) 10/09/17 08:41 MCH 30 pg (28-32) 10/09/17 08:41 MCHC 33 % (32-34) 10/09/17 08:41 RDW 12.6 % (13.2-15.2) L 10/09/17 08:41 Plt Count 243 K/mm3 (140-440) 10/09/17 08:41 Lymph % (Auto) 35.2 % (13.4-35.0) H 10/09/17 08:41 [place] % (Auto) 8.1 % (0.0-7.3) H 10/09/17 08:41 Eos % (Auto) 1.5 % (0.0-4.3) 10/09/17 08:41 Baso % (Auto) 0.8 % (0.0-1.8) 10/09/17 08:41 Lymph # 1.9 K/mm3 (1.2-5.4) 10/09/17 08:41 [place] # 0.4 K/mm3 (0.0-0.8) 10/09/17 08:41 Eos # 0.1 K/mm3 (0.0-0.4) 10/09/17 08:41 Baso # 0.0 K/mm3 (0.0-0.1) 10/09/17 08:41 Seg Neutrophils % 54.4 % (40.0-70.0) 10/09/17 08:41 Seg Neutrophils # 3.0 K/mm3 (1.8-7.7) 10/09/17 08:41 Sodium 138 mmol/L (137-145) 10/09/17 08:41 Potassium 4.7 mmol/L (3.6-5.0) D 10/09/17 08:41 Chloride 100.0 mmol/L (98-107) 10/09/17 08:41 Carbon Dioxide 26 mmol/L (22-30) 10/09/17 08:41 Anion Gap 17 mmol/L 10/09/17 08:41 BUN 13 mg/dL (9-20) 10/09/17 08:41 Creatinine 0.9 mg/dL (0.8-1.5) 10/09/17 08:41 Estimated GFR > 60 ml/min 10/09/17 08:41 BUN/Creatinine Ratio 14 % 10/09/17 08:41 Glucose 90 mg/dL (75-100) 10/09/17 08:41 Lactic Acid 2.00 mmol/L (0.7-2.0) 10/07/17 20:10 Calcium 9.3 mg/dL (8.4-10.2) 10/09/17 08:41 Total Creatine Kinase 124 units/L (55-170) 10/07/17 20:10 Urine Color Colleen (Yellow) 10/07/17 20:14 Urine Turbidity Clear (Clear) 10/07/17 20:14 Urine pH 6.0 (5.0-7.0) 10/07/17 20:14 Ur Specific [place] 1.025 (1.003-1.030) 10/07/17 20:14 Urine Protein 100 mg/dl mg/dL (Negative) 10/07/17 20:14 Urine Glucose (UA) Neg mg/dL (Negative) 10/07/17 20:14 Urine Ketones Tr mg/dL (Negative) 10/07/17 20:14 Urine Blood Lg (Negative) 10/07/17 20:14 Urine Nitrite Neg (Negative) 10/07/17 20:14 Urine Bilirubin Neg (Negative) 10/07/17 20:14 Urine Urobilinogen < 2.0 mg/dL (<2.0) 10/07/17 20:14 Ur Leukocyte Esterase Mod (Negative) 10/07/17 20:14 Urine WBC (Auto) 115.0 /HPF (0.0-6.0) H 10/07/17 20:14 Urine RBC (Auto) > 182.0 /HPF (0.0-6.0) 10/07/17 20:14 Urine Bacteria (Auto) 1+ /HPF (Negative) 10/07/17 20:14 Urine Mucus 3+ /HPF 10/07/17 20:14 Salicylates < 0.3 mg/dL (2.8-20.0) L 10/07/17 20:10 Urine Opiates Screen Presumptive negative 10/07/17 20:10 Urine Methadone Screen Presumptive negative 10/07/17 20:10 Acetaminophen < 5.0 ug/mL (10.0-30.0) L 10/07/17 20:10 Ur Barbiturates Screen Presumptive negative 10/07/17 20:10 Ur Phencyclidine Scrn Presumptive negative 10/07/17 20:10 Ur Amphetamines Screen Presumptive positive 10/07/17 20:10 U Benzodiazepines Scrn Presumptive negative 10/07/17 20:10 Urine Cocaine Screen Presumptive negative 10/07/17 20:10 U Marijuana (THC) Screen Presumptive positive 10/07/17 20:10 Drugs of Abuse Note Disclamer 10/07/17 20:10 Plasma/Serum Alcohol < 0.01 % (0-0.07) 10/07/17 20:10
[2017-10-08] MEDS: MORPHINE IV PRN (15:56)
[2017-10-09] MEDS: MORPHINE IV PRN ×2 (00:26→08:07)
[2017-10-09 09:12] LABS: Basophils % (Auto) 0.8 % (0.0-1.8); Eosinophils # (Auto) 0.1 K/mm3 (0.0-0.4); Eosinophils % (Auto) 1.5 % (0.0-4.3); Hematocrit 41.7 % (35.5-45.6); Hemoglobin 13.6 gm/dl (11.8-15.2); Lymphocytes # (Auto) 1.9 K/mm3 (1.2-5.4); Lymphocytes % (Auto) 35.2 % (13.4-35.0); Mean Corpuscular HGB Conc 33 % (32-34); Mean Corpuscular Hemoglobin 30 pg (28-32); Mean Corpuscular Volume 91 fl (84-94); Monocytes # (Auto) 0.4 K/mm3 (0.0-0.8); Monocytes % (Auto) 8.1 % (0.0-7.3); Platelet Count 243 K/mm3 (140-440); Red Blood Count 4.57 M/mm3 (3.65-5.03); Red Cell Distribution Width 12.6 % (13.2-15.2)
[2017-10-09 09:16] LABS: BUN/Creatinine Ratio 14; Blood Urea Nitrogen 13 mg/dL (9-20); Calcium 9.3 mg/dL (8.4-10.2); Hemolysis Index 14
[2017-10-09] MEDS: SODIUM CHLORIDE FLUSH SYRINGE 10 ML IV SCH (10:18)
[2017-10-09] MEDS: cefTRIAXone 1 GM in NACL 0.9% 20 ML IV SCH (10:19)
[2017-10-09] MEDS: LOVENOX SUB-Q SCH (10:19)
[2017-10-09] MEDS ORDERED: DILAUDID IV PRN (10:36)
--- NOTE | 2017-10-09 12:26 | Progress Note ---
<GERALDO PAREDES - Last Filed: 10/09/17 12:21> Assessment and Plan Assessment and plan: 27-year-old man with a history of kidney stones, status post bilateral stents to the kidney, presented to emergency room with complaint of bilateral flank pain which he describes as sharp, constant, no radiation, intensity 10 over 10, cannot identify exacerbating or relieving factors. Also complaining of urinary frequency. He was diagnosed with pyelonephritis, the patient was given a prescription for Bactrim but he has not filled his prescription Pyelonephritis with hydronephrosis CT abdomen revealed Urinary stent extending from the renal pelvis on each side to the urinary bladder. Left renal stone. Improvement of left hydronephrosis Follow cultures, continue antibiotics, supportive care Hypokalemia K replaced Status post bilateral kidney stents DVT prophylaxis SCDs History Interval history: Patient seen and examined. He continues to complain of back pain relieved with morphine. He denies CP, sob, NV. Labs and nursing notes reviewed discharge Hospitalist Physical - Constitutional Vitals: Temp Pulse Resp BP Pulse Ox 98.5 F 64 20 103/66 98 10/09/17 07:35 10/09/17 07:35 10/09/17 07:35 10/09/17 07:35 10/09/17 07:35 General appearance: Present: no acute distress, well-nourished - EENT Eyes: Present: PERRL, EOM intact ENT: hearing intact, clear oral mucosa - Neck Neck: Present: supple, normal ROM - Respiratory Respiratory effort: normal Respiratory: bilateral: CTA - Cardiovascular Rhythm: regular Heart Sounds: Present: S1 & S2 - Extremities Extremities: no ischemia, No edema - Abdominal General gastrointestinal: soft, non-tender, non-distended - Integumentary Integumentary: Present: clear, warm, dry - Psychiatric Psychiatric: appropriate mood/affect, intact judgment & insight, cooperative - Neurologic Neurologic: CNII-XII intact, moves all extremities - Allied Health Allied health notes reviewed: nursing Results - Labs CBC & Chem 7: 10/09/17 08:41 10/09/17 08:41 Labs: Laboratory Last Values WBC 5.5 K/mm3 (4.5-11.0) 10/09/17 08:41 RBC 4.57 M/mm3 (3.65-5.03) 10/09/17 08:41 Hgb 13.6 gm/dl (11.8-15.2) 10/09/17 08:41 Hct 41.7 % (35.5-45.6) 10/09/17 08:41 MCV 91 fl (84-94) 10/09/17 08:41 MCH 30 pg (28-32) 10/09/17 08:41 MCHC 33 % (32-34) 10/09/17 08:41 RDW 12.6 % (13.2-15.2) L 10/09/17 08:41 Plt Count 243 K/mm3 (140-440) 10/09/17 08:41 Lymph % (Auto) 35.2 % (13.4-35.0) H 10/09/17 08:41 [place] % (Auto) 8.1 % (0.0-7.3) H 10/09/17 08:41 Eos % (Auto) 1.5 % (0.0-4.3) 10/09/17 08:41 Baso % (Auto) 0.8 % (0.0-1.8) 10/09/17 08:41 Lymph # 1.9 K/mm3 (1.2-5.4) 10/09/17 08:41 [place] # 0.4 K/mm3 (0.0-0.8) 10/09/17 08:41 Eos # 0.1 K/mm3 (0.0-0.4) 10/09/17 08:41 Baso # 0.0 K/mm3 (0.0-0.1) 10/09/17 08:41 Seg Neutrophils % 54.4 % (40.0-70.0) 10/09/17 08:41 Seg Neutrophils # 3.0 K/mm3 (1.8-7.7) 10/09/17 08:41 Sodium 138 mmol/L (137-145) 10/09/17 08:41 Potassium 4.7 mmol/L (3.6-5.0) D 10/09/17 08:41 Chloride 100.0 mmol/L (98-107) 10/09/17 08:41 Carbon Dioxide 26 mmol/L (22-30) 10/09/17 08:41 Anion Gap 17 mmol/L 10/09/17 08:41 BUN 13 mg/dL (9-20) 10/09/17 08:41 Creatinine 0.9 mg/dL (0.8-1.5) 10/09/17 08:41 Estimated GFR > 60 ml/min 10/09/17 08:41 BUN/Creatinine Ratio 14 % 10/09/17 08:41 Glucose 90 mg/dL (75-100) 10/09/17 08:41 Lactic Acid 2.00 mmol/L (0.7-2.0) 10/07/17 20:10 Calcium 9.3 mg/dL (8.4-10.2) 10/09/17 08:41 Total Creatine Kinase 124 units/L (55-170) 10/07/17 20:10 Urine Color Colleen (Yellow) 10/07/17 20:14 Urine Turbidity Clear (Clear) 10/07/17 20:14 Urine pH 6.0 (5.0-7.0) 10/07/17 20:14 Ur Specific [place] 1.025 (1.003-1.030) 10/07/17 20:14 Urine Protein 100 mg/dl mg/dL (Negative) 10/07/17 20:14 Urine Glucose (UA) Neg mg/dL (Negative) 10/07/17 20:14 Urine Ketones Tr mg/dL (Negative) 10/07/17 20:14 Urine Blood Lg (Negative) 10/07/17 20:14 Urine Nitrite Neg (Negative) 10/07/17 20:14 Urine Bilirubin Neg (Negative) 10/07/17 20:14 Urine Urobilinogen < 2.0 mg/dL (<2.0) 10/07/17 20:14 Ur Leukocyte Esterase Mod (Negative) 10/07/17 20:14 Urine WBC (Auto) 115.0 /HPF (0.0-6.0) H 10/07/17 20:14 Urine RBC (Auto) > 182.0 /HPF (0.0-6.0) 10/07/17 20:14 Urine Bacteria (Auto) 1+ /HPF (Negative) 10/07/17 20:14 Urine Mucus 3+ /HPF 10/07/17 20:14 Salicylates < 0.3 mg/dL (2.8-20.0) L 10/07/17 20:10 Urine Opiates Screen Presumptive negative 10/07/17 20:10 Urine Methadone Screen Presumptive negative 10/07/17 20:10 Acetaminophen < 5.0 ug/mL (10.0-30.0) L 10/07/17 20:10 Ur Barbiturates Screen Presumptive negative 10/07/17 20:10 Ur Phencyclidine Scrn Presumptive negative 10/07/17 20:10 Ur Amphetamines Screen Presumptive positive 10/07/17 20:10 U Benzodiazepines Scrn Presumptive negative 10/07/17 20:10 Urine Cocaine Screen Presumptive negative 10/07/17 20:10 U Marijuana (THC) Screen Presumptive positive 10/07/17 20:10 Drugs of Abuse Note Disclamer 10/07/17 20:10 Plasma/Serum Alcohol < 0.01 % (0-0.07) 10/07/17 20:10 <EWELINA CARABALLO - Last Filed: 10/09/17 16:51> Hospitalist Physical - Constitutional Vitals: Temp Pulse Resp BP Pulse Ox 97.7 F 66 20 127/69 100 10/09/17 15:58 10/09/17 15:58 10/09/17 15:58 10/09/17 15:58 10/09/17 15:58 Results - Labs CBC & Chem 7: 10/09/17 08:41 10/09/17 08:41 Labs: Laboratory Last Values WBC 5.5 K/mm3 (4.5-11.0) 10/09/17 08:41 RBC 4.57 M/mm3 (3.65-5.03) 10/09/17 08:41 Hgb 13.6 gm/dl (11.8-15.2) 10/09/17 08:41 Hct 41.7 % (35.5-45.6) 10/09/17 08:41 MCV 91 fl (84-94) 10/09/17 08:41 MCH 30 pg (28-32) 10/09/17 08:41 MCHC 33 % (32-34) 10/09/17 08:41 RDW 12.6 % (13.2-15.2) L 10/09/17 08:41 Plt Count 243 K/mm3 (140-440) 10/09/17 08:41 Lymph % (Auto) 35.2 % (13.4-35.0) H 10/09/17 08:41 [place]bert % (Auto) 8.1 % (0.0-7.3) H 10/09/17 08:41 Eos % (Auto) 1.5 % (0.0-4.3) 10/09/17 08:41 Baso % (Auto) 0.8 % (0.0-1.8) 10/09/17 08:41 Lymph # 1.9 K/mm3 (1.2-5.4) 10/09/17 08:41 [place] # 0.4 K/mm3 (0.0-0.8) 10/09/17 08:41 Eos # 0.1 K/mm3 (0.0-0.4) 10/09/17 08:41 Baso # 0.0 K/mm3 (0.0-0.1) 10/09/17 08:41 Seg Neutrophils % 54.4 % (40.0-70.0) 10/09/17 08:41 Seg Neutrophils # 3.0 K/mm3 (1.8-7.7) 10/09/17 08:41 Sodium 138 mmol/L (137-145) 10/09/17 08:41 Potassium 4.7 mmol/L (3.6-5.0) D 10/09/17 08:41 Chloride 100.0 mmol/L (98-107) 10/09/17 08:41 Carbon Dioxide 26 mmol/L (22-30) 10/09/17 08:41 Anion Gap 17 mmol/L 10/09/17 08:41 BUN 13 mg/dL (9-20) 10/09/17 08:41 Creatinine 0.9 mg/dL (0.8-1.5) 10/09/17 08:41 Estimated GFR > 60 ml/min 10/09/17 08:41 BUN/Creatinine Ratio 14 % 10/09/17 08:41 Glucose 90 mg/dL (75-100) 10/09/17 08:41 Lactic Acid 2.00 mmol/L (0.7-2.0) 10/07/17 20:10 Calcium 9.3 mg/dL (8.4-10.2) 10/09/17 08:41 Total Creatine Kinase 124 units/L (55-170) 10/07/17 20:10 Urine Color Colleen (Yellow) 10/07/17 20:14 Urine Turbidity Clear (Clear) 10/07/17 20:14 Urine pH 6.0 (5.0-7.0) 10/07/17 20:14 Ur Specific [place] 1.025 (1.003-1.030) 10/07/17 20:14 Urine Protein 100 mg/dl mg/dL (Negative) 10/07/17 20:14 Urine Glucose (UA) Neg mg/dL (Negative) 10/07/17 20:14 Urine Ketones Tr mg/dL (Negative) 10/07/17 20:14 Urine Blood Lg (Negative) 10/07/17 20:14 Urine Nitrite Neg (Negative) 10/07/17 20:14 Urine Bilirubin Neg (Negative) 10/07/17 20:14 Urine Urobilinogen < 2.0 mg/dL (<2.0) 10/07/17 20:14 Ur Leukocyte Esterase Mod (Negative) 10/07/17 20:14 Urine WBC (Auto) 115.0 /HPF (0.0-6.0) H 10/07/17 20:14 Urine RBC (Auto) > 182.0 /HPF (0.0-6.0) 10/07/17 20:14 Urine Bacteria (Auto) 1+ /HPF (Negative) 10/07/17 20:14 Urine Mucus 3+ /HPF 10/07/17 20:14 Salicylates < 0.3 mg/dL (2.8-20.0) L 10/07/17 20:10 Urine Opiates Screen Presumptive negative 10/07/17 20:10 Urine Methadone Screen Presumptive negative 10/07/17 20:10 Acetaminophen < 5.0 ug/mL (10.0-30.0) L 10/07/17 20:10 Ur Barbiturates Screen Presumptive negative 10/07/17 20:10 Ur Phencyclidine Scrn Presumptive negative 10/07/17 20:10 Ur Amphetamines Screen Presumptive positive 10/07/17 20:10 U Benzodiazepines Scrn Presumptive negative 10/07/17 20:10 Urine Cocaine Screen Presumptive negative 10/07/17 20:10 U Marijuana (THC) Screen Presumptive positive 10/07/17 20:10 Drugs of Abuse Note Disclamer 10/07/17 20:10 Plasma/Serum Alcohol < 0.01 % (0-0.07) 10/07/17 20:10
--- NOTE | 2017-10-09 14:38 | Discharge Summary ---
Providers - Providers Date of Admission: 10/07/17 23:53 Attending physician: EWELINA CARABALLO Primary care physician: MARYCRUZ JENKINS MD Hospitalization Condition: Good Time spent for discharge: 31 minutes Core Measure Documentation - Palliative Care Palliative Care/ Comfort Measures: Not Applicable - Core Measures Any of the following diagnoses?: none Exam - Constitutional Vitals: Temp Pulse Resp BP Pulse Ox 98.5 F 64 20 103/66 98 10/09/17 07:35 10/09/17 07:35 10/09/17 07:35 10/09/17 07:35 10/09/17 07:35 General appearance: Present: no acute distress, well-nourished - EENT Eyes: Present: PERRL ENT: hearing intact, clear oral mucosa - Neck Neck: Present: supple, normal ROM - Respiratory Respiratory effort: normal Respiratory: bilateral: CTA - Cardiovascular Heart Sounds: Present: S1 & S2. Absent: rub, click - Extremities Extremities: pulses symmetrical, No edema Peripheral Pulses: within normal limits - Abdominal General gastrointestinal: Present: soft, non-tender, non-distended, normal bowel sounds - Integumentary Integumentary: Present: clear, warm, dry - Musculoskeletal Musculoskeletal: gait normal, strength equal bilaterally - Psychiatric Psychiatric: appropriate mood/affect, intact judgment & insight - Neurologic Neurologic: CNII-XII intact, moves all extremities - Allied Health Allied health notes reviewed: nursing Plan Additional Instructions: Follow up with your urologist within 7 days of discharge. As an addition option you may instead, follow up with urologist Dr Jose Mckee [phone] Follow up with: PRIMARY CAREMD [Primary Care Provider] - 3-5 Days Prescriptions: oxyCODONE /ACETAMINOPHEN [Percocet 5/325] 1 tab PO QHS #5 tablet Sulfamethoxazole/Trimethoprim [Bactrim DS TAB] 1 each PO BID #10 tablet
[2017-10-09] MEDS: PERCOCET 5/325 PO PRN (16:37)
[2017-10-09 16:51] VITALS: BP 127/69
== END 2017-10-09 18:00 | disposition home or self-care (01) | DRG 694 ==
LOC: ED 19:35 → 3A 23:53
PROVIDERS: ADMIT Internal Medicine; ATTEND Internal Medicine
DX: N13.30 Unspecified hydronephrosis (principal); E87.6 Hypokalemia; N12 Tubulo-interstitial nephritis, not specified as acute or chronic; Z87.442 Personal history of urinary calculi; Z82.49 Family history of ischemic heart disease and other diseases of the circulatory system
CPT/HCPCS: 36415; 70450; 71045; 74176; 80048; 80307; 80320; 81001; 82140; 82550; 85025; 87040; 87086; 93005; 93010; 96361; 96374; 96375; G0480; J0696; J1170; J1650; J2270; J2405; J2765; J3010; J7030

== ENCOUNTER 2017-10-28 18:44 | Emergency (ER) | payer SELFPAY ==
[2017-10-28 18:49] VITALS: BP 133/80
[2017-10-28] MEDS ORDERED: TORADOL IV ONE (18:49)
[2017-10-28] MEDS ORDERED: ZOFRAN IV ONE (18:49)
--- NOTE | 2017-10-28 21:02 | Cat Scan Report ---
FINAL REPORT EXAM: CT ABDOMEN PELVIS WO CON HISTORY: BL flank pain TECHNIQUE: CT abdomen and pelvis without contrast PRIORS: Comparison is dated October 07, 2017 FINDINGS: No acute abnormality identified in the lung bases. No focal abnormality identified within the liver parenchyma. The spleen demonstrates normal size and attenuation. No pancreatic abnormalities seen. Right kidney demonstrates no evidence hydronephrosis. There is a right renal stent proximal end at the renal pelvis distal end within the urinary bladder There is moderate increase of left hydronephrosis. There is a left ureteral stent proximal end at the ureteropelvic junction distal end within the urinary bladder. Noted is 2 millimeter nonobstructing lower pole left renal calculus The adrenal glands are unremarkable. Abdominal aorta is normal in caliber. No pathologically enlarged lymph nodes are identified. No signs of free fluid or free air No evidence of small bowel dilatation. No evidence of colonic dilatation. No pericolonic inflammatory change seen. IMPRESSION: Moderate increase of left hydronephrosis. The proximal end of the stent is slightly lower and no lies at the ureteral pelvic junction No evidence for right hydronephrosis. Right ureteral stent is unchanged Small nonobstructing lower pole left renal calculus
[2017-10-28 22:22] LABS: Bacteria,Urine 1+ /HPF (Negative); Bilirubin,Urine NEG (Negative); Blood,Urine LG (Negative); Color,Urine Red (Yellow); Urobilinogen,Urine < 2.0 mg/dL (<2.0)
[2017-10-28 22:24] LABS: RBC,Urine > 182.0 /HPF (0.0-6.0)
== END 2017-10-28 23:45 | disposition left against medical advice (07) ==
LOC: ED 18:44
DX: N23 Unspecified renal colic (principal); Z53.21 Procedure and treatment not carried out due to patient leaving prior to being seen by health care provider
CPT/HCPCS: 74176; 81001; J1885; J2405

== ENCOUNTER 2017-11-07 10:12 | Inpatient (IN) | payer OTHER ==
[2017-11-07] MEDS ORDERED: NACL 0.9% 1000 ML 1,000 ML IV ONE ×2 (10:35→13:59)
[2017-11-07] MEDS ORDERED: TORADOL IV ONE (10:35)
[2017-11-07] MEDS ORDERED: ZOFRAN IV ONE ×2 (11:14→12:14)
[2017-11-07 11:17] LABS: Basophils % (Auto) 0.2 % (0.0-1.8); Hematocrit 44.6 % (35.5-45.6); Hemoglobin 14.8 gm/dl (11.8-15.2); Lymphocytes # (Auto) 0.7 K/mm3 (1.2-5.4); Lymphocytes % (Auto) 4.2 % (13.4-35.0); Mean Corpuscular HGB Conc 33 % (32-34); Mean Corpuscular Hemoglobin 30 pg (28-32); Mean Corpuscular Volume 91 fl (84-94); Monocytes % (Auto) 5.9 % (0.0-7.3); Platelet Count 316 K/mm3 (140-440); Red Blood Count 4.92 M/mm3 (3.65-5.03); Red Cell Distribution Width 13.2 % (13.2-15.2)
--- NOTE | 2017-11-07 11:31 | XRay Report ---
ABDOMINAL SERIES INDICATION: Abdominal pain. COMPARISON: None similar. FINDINGS: Abdominal series, three radiographs, demonstrate nonobstructive bowel gas pattern without focal suspicious calcifications, pneumatosis or pneumoperitoneum. Bilateral double-J ureteral stents. Accompanying chest radiograph demonstrates normal cardiomediastinal silhouette. Clear lungs. Mild lumbar dextroscoliosis apex about L3-L4. Right femoral medullary dyan with screws also partially imaged. CONCLUSION: No acute radiographic abnormality with few iatrogenic changes, as above. Thank you for the opportunity to participate in this patient's care.
[2017-11-07 11:35] LABS: Bilirubin,Urine NEG (Negative); Blood,Urine LG (Negative); Color,Urine Red (Yellow); Mucus,Urine 3+ /HPF; Urobilinogen,Urine < 2.0 mg/dL (<2.0)
[2017-11-07 11:36] LABS: Alanine Aminotransferase 20 units/L (7-56); Albumin 4.6 g/dL (3.9-5); BUN/Creatinine Ratio 13; Blood Urea Nitrogen 23 mg/dL (9-20); Calcium 9.6 mg/dL (8.4-10.2); Hemolysis Index 15
[2017-11-07 11:37] LABS: RBC,Urine > 182.0 /HPF (0.0-6.0); WBC,Urine > 182.0 /HPF (0.0-6.0)
[2017-11-07 11:45] LABS: Bilirubin,Direct < 0.2 mg/dL (0-0.2)
[2017-11-07] MEDS ORDERED: SUBLIMAZE IV ONE (12:14)
[2017-11-07] MEDS ORDERED: ROCEPHIN/NS 1 GM/50 ML 1 GM/50 ML BAG IV ONE (12:14)
[2017-11-07] MEDS ORDERED: cefTRIAXone 1 GM in NACL 0.9% 20 ML IV ONE (12:30)
--- NOTE | 2017-11-07 12:31 | Emergency Department Report ---
HPI - General Chief Complaint: Abdominal Pain Time Seen by Provider: 11/07/17 12:10 - HPI HPI: Room 3 The patient is 27-year-old male presents with chief complaint of "both of my kidneys and chest hurt." The patient states for the past 2 days he's had bilateral flank pain is anterior chest. Described as punching in nature. Patient is to subjective fever and nausea and vomiting. Patient also admits to dysuria and hematuria. Patient gives his pain is score of 10/10. Patient had bilateral double-J ureteral stents placed in June 2017 Location: Bilateral flank, chest Duration: 2 days Quality: Punching Severity: 10/10 Modifying factors: [see above] Context: [see above] Mode of transportation: [not driving] ED Past Medical Hx - Past Medical History Hx Kidney Stones: Yes Additional medical history: kidney problems - Surgical History Hx Appendectomy: Yes Additional Surgical History: stents placed in both kidneys in Dec - Family History Family history: no significant - Social History Smoking Status: Current Every Day Smoker Substance Use Type: None - Medications Home Medications: Home Medications Medication Instructions Recorded Confirmed Last Taken Type Acetaminophen [Tylenol Extra 500 mg PO QID PRN 10/07/17 11/07/17 10/07/17 History Strength] ED Review of Systems ROS: Stated complaint: LOW BACK PAIN Other details as noted in HPI Constitutional: chills, fever (subjective) Cardiovascular: chest pain Gastrointestinal: abdominal pain, nausea, vomiting Genitourinary: dysuria, hematuria Musculoskeletal: back pain Physical Exam - Physical Exam Vital Signs: Vital Signs 11/07/17 11/07/17 10:30 11:12 Temperature 98.6 F Pulse Rate 113 H Respiratory 16 Rate Blood Pressure 134/99 O2 Sat by Pulse 99 99 Oximetry Physical Exam: GENERAL: The patient is well-developed well-nourished male sitting on stretcher with obvious rigors appearing to be in moderate discomfort. [] HEENT: Normocephalic. Atraumatic. Extraocular motions are intact. Patient has moist mucous membranes. NECK: Supple. Trachea midline CHEST/LUNGS: Clear to auscultation. There is no respiratory distress noted. HEART/CARDIOVASCULAR: Regular. There is no tachycardia. There is no gallop rub or murmur. ABDOMEN: Abdomen is diffusely tender. Patient has normal bowel sounds. There is no abdominal distention. SKIN: There is no rash. There is no edema. There is no diaphoresis. NEURO: The patient is awake, alert, and oriented. The patient is cooperative. The patient has normal speech MUSCULOSKELETAL: There is no evidence of acute injury. Bilateral flank pain ED Course Vital Signs 11/07/17 11/07/17 10:30 11:12 Temperature 98.6 F Pulse Rate 113 H Respiratory 16 Rate Blood Pressure 134/99 O2 Sat by Pulse 99 99 Oximetry - Consultations Consultation #1: 11/07/17 14:16 Urology paged ED Medical Decision Making - Lab Data Result diagrams: 11/07/17 10:57 11/07/17 10:57 Laboratory Tests 11/07/17 11/07/17 11/07/17 10:57 10:57 10:57 WBC 17.3 H RBC 4.92 Hgb 14.8 Hct 44.6 MCV 91 MCH 30 MCHC 33 RDW 13.2 Plt Count 316 Lymph % (Auto) 4.2 L [place] % (Auto) 5.9 Eos % (Auto) 0.0 Baso % (Auto) 0.2 Lymph # 0.7 L [place] # 1.0 H Eos # 0.0 Baso # 0.0 Seg Neutrophils % 89.7 H Seg Neutrophils # 15.5 H Sodium 139 Potassium 3.7 Chloride 96.9 L Carbon Dioxide 21 L Anion Gap 25 BUN 23 H Creatinine 1.8 H Estimated GFR 55 BUN/Creatinine Ratio 13 Glucose 136 H Calcium 9.6 Total Bilirubin 0.50 Direct Bilirubin < 0.2 Indirect Bilirubin 0.3 AST 19 ALT 20 Alkaline Phosphatase 61 Total Creatine Kinase 90 CK-MB (CK-2) < 1.0 CK-MB (CK-2) Rel Index 1.1 Troponin T < 0.010 Total Protein 8.7 H Albumin 4.6 Albumin/Globulin Ratio 1.1 Urine Color Urine Turbidity Urine pH Ur Specific [place] Urine Protein Urine Glucose (UA) Urine Ketones Urine Blood Urine Nitrite Urine Bilirubin Urine Urobilinogen Ur Leukocyte Esterase Urine WBC (Auto) Urine RBC (Auto) U Epithel Cells (Auto) Urine WBC Clumps Urine Mucus 11/07/17 11:22 WBC RBC Hgb Hct MCV MCH MCHC RDW Plt Count Lymph % (Auto) [place] % (Auto) Eos % (Auto) Baso % (Auto) Lymph # [place] # Eos # Baso # Seg Neutrophils % Seg Neutrophils # Sodium Potassium Chloride Carbon Dioxide Anion Gap BUN Creatinine Estimated GFR BUN/Creatinine Ratio Glucose Calcium Total Bilirubin Direct Bilirubin Indirect Bilirubin AST ALT Alkaline Phosphatase Total Creatine Kinase CK-MB (CK-2) CK-MB (CK-2) Rel Index Troponin T Total Protein Albumin Albumin/Globulin Ratio Urine Color Red Urine Turbidity Clear Urine pH 5.0 Ur Specific [place] 1.024 Urine Protein 100 mg/dl Urine Glucose (UA) Neg Urine Ketones Tr Urine Blood Lg Urine Nitrite Neg Urine Bilirubin Neg Urine Urobilinogen < 2.0 Ur Leukocyte Esterase Lg Urine WBC (Auto) > 182.0 H Urine RBC (Auto) > 182.0 U Epithel Cells (Auto) 5.0 Urine WBC Clumps 3+ Urine Mucus 3+ - EKG Data -: EKG Interpreted by Tn EKG shows normal: sinus rhythm Rate: normal - EKG Data When compared to previous EKG there are: previous EKG unavailable Interpretation: nonspecific ST-T wave lalo (T-wave inversion in lead 3) - Radiology Data Radiology results: report reviewed (CT abdomen and pelvis), image reviewed (CT abdomen and pelvis) [address] [address] Cat Scan Report Signed Patient: FRANSICO MELGAR MR#: [id number] : 1990 Acct:[id number] Age/Sex: 27 / M ADM Date: 11/07/17 Loc: ED Attending Dr: Ordering Physician: SILVIA RANDOLPH MD Date of Service: 11/07/17 Procedure(s): CT abdomen pelvis wo con Accession Number(s): [id number] cc: SILVIA RANDOLPH MD FINAL REPORT EXAM: CT ABDOMEN PELVIS WO CON HISTORY: bilateral flank pain, leukocytosis TECHNIQUE: CT examination of the ABDOMEN without IV contrast CT examination of the PELVIS without IV contrast PRIORS: 10/28/2017 FINDINGS: Normal noncontrast appearance of the liver, gallbladder, adrenals, pancreas, and spleen. Normal caliber abdominal aorta and IVC. New moderate right hydronephrosis is nonspecific. 1 mm nonobstructing calculus in right renal lower pole. Right ureteral stent remains in place with proximal coil in the right renal pelvis and distal coil in the urinary bladder lumen. Interval decrease left hydronephrosis with slight residual. 1 mm and 2 mm nonobstructing left renal calculi. Left ureteral stent remains in place with proximal coil in the distal aspect of the left renal pelvis and distal coil in the urinary bladder lumen. No definite calculus visualized in the ureters. Very small fat containing umbilical hernia. No retroperitoneal adenopathy. No definite mesenteric mass. Normal-appearing stomach and duodenum. No small bowel distention in the abdomen and pelvis. Scattered prominence of bowel gas in the small and large bowel loops may reflect paralytic ileus without gross distention. No visible pelvic free fluid. Otherwise normal-appearing urinary bladder, prostate, seminal vesicles, and rectum. No definite sigmoid colon abnormality. No gross ascites, free air, or colonic distention. Normal-appearing cecum and terminal ileum. Appendix not visible and may be obscured by adjacent anatomy. Rotatory lumbar curvature with mid right apex. Right proximal femur hardware again noted with metal artifact again limiting the lower pelvis. IMPRESSION: Bilateral ureteral stents remain in place with new moderate right hydronephrosis and significant decrease left hydronephrosis with slight residual Nonobstructing bilateral renal calculi Scattered prominence of small and large bowel gas, without gross distention, may reflect paralytic ileus Transcribed By: BAL Dictated By: MADYSON MCCRACKEN MD Electronically Authenticated By: MADYSON MCCRACKEN MD Signed Date/Time: 11/07/171406 DD/ 06 TD/TT: 11/07/171406 - Differential Diagnosis pyelonephritis, renal colic, ACS, GERD, pericarditis Critical care attestation.: If time is entered above; I have spent that time in minutes in the direct care of this critically ill patient, excluding procedure time. ED Disposition Clinical Impression: Pyelonephritis, Nausea & vomiting, Leukocytosis Disposition: -09 OP ADMIT IP TO THIS HOSP Is pt being admited?: Yes Condition: Serious Referrals: AMARILYS CORLEY MD [Primary Care Provider] - 3-5 Days
[2017-11-07 12:51] LABS: Creatine Kinase MB < 1.0 ng/mL (0.0-4.0)
--- NOTE | 2017-11-07 14:12 | Cat Scan Report ---
FINAL REPORT EXAM: CT ABDOMEN PELVIS WO CON HISTORY: bilateral flank pain, leukocytosis TECHNIQUE: CT examination of the ABDOMEN without IV contrast CT examination of the PELVIS without IV contrast PRIORS: 10/28/2017 FINDINGS: Normal noncontrast appearance of the liver, gallbladder, adrenals, pancreas, and spleen. Normal caliber abdominal aorta and IVC. New moderate right hydronephrosis is nonspecific. 1 mm nonobstructing calculus in right renal lower pole. Right ureteral stent remains in place with proximal coil in the right renal pelvis and distal coil in the urinary bladder lumen. Interval decrease left hydronephrosis with slight residual. 1 mm and 2 mm nonobstructing left renal calculi. Left ureteral stent remains in place with proximal coil in the distal aspect of the left renal pelvis and distal coil in the urinary bladder lumen. No definite calculus visualized in the ureters. Very small fat containing umbilical hernia. No retroperitoneal adenopathy. No definite mesenteric mass. Normal-appearing stomach and duodenum. No small bowel distention in the abdomen and pelvis. Scattered prominence of bowel gas in the small and large bowel loops may reflect paralytic ileus without gross distention. No visible pelvic free fluid. Otherwise normal-appearing urinary bladder, prostate, seminal vesicles, and rectum. No definite sigmoid colon abnormality. No gross ascites, free air, or colonic distention. Normal-appearing cecum and terminal ileum. Appendix not visible and may be obscured by adjacent anatomy. Rotatory lumbar curvature with mid right apex. Right proximal femur hardware again noted with metal artifact again limiting the lower pelvis. IMPRESSION: Bilateral ureteral stents remain in place with new moderate right hydronephrosis and significant decrease left hydronephrosis with slight residual Nonobstructing bilateral renal calculi Scattered prominence of small and large bowel gas, without gross distention, may reflect paralytic ileus
[2017-11-07] MEDS ORDERED: NACL 0.9% 1000 ML 1,000 ML ONE (14:51)
[2017-11-07] MEDS ORDERED: ZOFRAN IV PRN ×2 (17:28→23:36)
[2017-11-07] MEDS: MORPHINE IV PRN ×2 (18:00→22:20)
--- NOTE | 2017-11-07 23:32 | History and Physical Report ---
History of Present Illness Date of examination: 11/07/17 Date of admission: 11/07/17 14:32 Chief complaint: CC: Fever chills History of present illness: [place]: The patient is 27-year-old male presents with chief complaint of bilateral flank pain. The patient states for the past 2 days he's had bilateral flank pain . Sharp in nature. Patient has subjective fever and nausea and vomiting. Patient also admits to dysuria and hematuria. Patient gives his pain is score of 10/10. Patient had bilateral double-J ureteral stents placed in June 2017 for ureteric obstruction. - Past Medical History Hx Kidney Stones: Yes Additional medical history: kidney problems - Surgical History Hx Appendectomy: Yes Additional Surgical History: stents placed in both kidneys in Jun - Family History Family history: no significant - Social History Smoking Status: Current Every Day Smoker Substance Use Type: None - Medications Home Medications: Home Medications Medication Instructions Recorded Confirmed Last Taken Type Acetaminophen [Tylenol Extra 500 mg PO QID PRN 10/07/17 11/07/17 10/07/17 History Strength] Review of Systems ROS: Stated complaint: LOW BACK PAIN Other details as noted in HPI Constitutional: chills, fever (subjective) Cardiovascular: chest pain Gastrointestinal: abdominal pain, nausea, vomiting Genitourinary: dysuria, hematuria Musculoskeletal: back pain 14 point ROS done -otherwise negative. Medications and Allergies Allergies Allergy/AdvReac Type Severity Reaction Status Date / Time tramadol Allergy Vomiting Verified 10/03/17 22:03 Home Medications Medication Instructions Recorded Confirmed Last Taken Type Acetaminophen [Tylenol Extra 500 mg PO QID PRN 10/07/17 11/07/17 10/07/17 History Strength] Active Meds: Active Medications Morphine Sulfate (Morphine) 4 mg IV Q4H PRN PRN Reason: Pain, Moderate (4-6) Last Admin: 11/07/17 22:20 Dose: 4 mg Ondansetron HCl (Zofran) 4 mg IV Q4H PRN PRN Reason: Nausea And Vomiting Exam - Physical Exam Narrative exam: Lying in bed Lethargic. - Constitutional Vitals: Temp Pulse Resp BP Pulse Ox 98.7 F 92 H 18 112/66 95 11/07/17 17:10 11/07/17 20:07 11/07/17 17:10 11/07/17 17:10 11/07/17 17:10 General appearance: Present: mild distress - EENT Eyes: Present: PERRL ENT: hearing intact, clear oral mucosa - Neck Neck: Present: supple, normal ROM - Respiratory Respiratory effort: normal Respiratory: bilateral: CTA - Cardiovascular Heart rate: 98 Rhythm: regular Heart Sounds: Present: S1 & S2. Absent: rub, click - Extremities Extremities: no ischemia, pulses intact, pulses symmetrical, No edema Peripheral Pulses: within normal limits - Abdominal General gastrointestinal: Present: soft, tender (Bilateral flank pain), non- distended, normal bowel sounds Male genitourinary: Present: normal - Rectal Rectal Exam: deferred - Integumentary Integumentary: Present: clear, warm, dry - Musculoskeletal Musculoskeletal: gait normal, strength equal bilaterally - Psychiatric Psychiatric: appropriate mood/affect, intact judgment & insight - Neurologic Neurologic: CNII-XII intact, moves all extremities - Allied Health Allied health notes reviewed: nursing, case management Results - Labs CBC & Chem 7: 11/07/17 10:57 11/07/17 10:57 Labs: Laboratory Last Values WBC 17.3 K/mm3 (4.5-11.0) H 11/07/17 10:57 RBC 4.92 M/mm3 (3.65-5.03) 11/07/17 10:57 Hgb 14.8 gm/dl (11.8-15.2) 11/07/17 10:57 Hct 44.6 % (35.5-45.6) 11/07/17 10:57 MCV 91 fl (84-94) 11/07/17 10:57 MCH 30 pg (28-32) 11/07/17 10:57 MCHC 33 % (32-34) 11/07/17 10:57 RDW 13.2 % (13.2-15.2) 11/07/17 10:57 Plt Count 316 K/mm3 (140-440) 11/07/17 10:57 Lymph % (Auto) 4.2 % (13.4-35.0) L 11/07/17 10:57 [place] % (Auto) 5.9 % (0.0-7.3) 11/07/17 10:57 Eos % (Auto) 0.0 % (0.0-4.3) 11/07/17 10:57 Baso % (Auto) 0.2 % (0.0-1.8) 11/07/17 10:57 Lymph # 0.7 K/mm3 (1.2-5.4) L 11/07/17 10:57 [place] # 1.0 K/mm3 (0.0-0.8) H 11/07/17 10:57 Eos # 0.0 K/mm3 (0.0-0.4) 11/07/17 10:57 Baso # 0.0 K/mm3 (0.0-0.1) 11/07/17 10:57 Seg Neutrophils % 89.7 % (40.0-70.0) H 11/07/17 10:57 Seg Neutrophils # 15.5 K/mm3 (1.8-7.7) H 11/07/17 10:57 Sodium 139 mmol/L (137-145) 11/07/17 10:57 Potassium 3.7 mmol/L (3.6-5.0) 11/07/17 10:57 Chloride 96.9 mmol/L (98-107) L 11/07/17 10:57 Carbon Dioxide 21 mmol/L (22-30) L 11/07/17 10:57 Anion Gap 25 mmol/L 11/07/17 10:57 BUN 23 mg/dL (9-20) H 11/07/17 10:57 Creatinine 1.8 mg/dL (0.8-1.5) H 11/07/17 10:57 Estimated GFR 55 ml/min 11/07/17 10:57 BUN/Creatinine Ratio 13 % 11/07/17 10:57 Glucose 136 mg/dL (75-100) H 11/07/17 10:57 Calcium 9.6 mg/dL (8.4-10.2) 11/07/17 10:57 Total Bilirubin 0.50 mg/dL (0.1-1.2) 11/07/17 10:57 Direct Bilirubin < 0.2 mg/dL (0-0.2) 11/07/17 10:57 Indirect Bilirubin 0.3 mg/dL 11/07/17 10:57 AST 19 units/L (5-40) 11/07/17 10:57 ALT 20 units/L (7-56) 11/07/17 10:57 Alkaline Phosphatase 61 units/L (35-129) 11/07/17 10:57 Total Creatine Kinase 90 units/L (55-170) 11/07/17 10:57 CK-MB (CK-2) < 1.0 ng/mL (0.0-4.0) 11/07/17 10:57 CK-MB (CK-2) Rel Index 1.1 (0-4) 11/07/17 10:57 Troponin T < 0.010 ng/mL (0.00-0.029) 11/07/17 10:57 Total Protein 8.7 g/dL (6.3-8.2) H 11/07/17 10:57 Albumin 4.6 g/dL (3.9-5) 11/07/17 10:57 Albumin/Globulin Ratio 1.1 % 11/07/17 10:57 Urine Color Red (Yellow) 11/07/17 11:22 Urine Turbidity Clear (Clear) 11/07/17 11:22 Urine pH 5.0 (5.0-7.0) 11/07/17 11:22 Ur Specific [place] 1.024 (1.003-1.030) 11/07/17 11:22 Urine Protein 100 mg/dl mg/dL (Negative) 11/07/17 11:22 Urine Glucose (UA) Neg mg/dL (Negative) 11/07/17 11:22 Urine Ketones Tr mg/dL (Negative) 11/07/17 11:22 Urine Blood Lg (Negative) 11/07/17 11:22 Urine Nitrite Neg (Negative) 11/07/17 11:22 Urine Bilirubin Neg (Negative) 11/07/17 11:22 Urine Urobilinogen < 2.0 mg/dL (<2.0) 11/07/17 11:22 Ur Leukocyte Esterase Lg (Negative) 11/07/17 11:22 Urine WBC (Auto) > 182.0 /HPF (0.0-6.0) H 11/07/17 11:22 Urine RBC (Auto) > 182.0 /HPF (0.0-6.0) 11/07/17 11:22 U Epithel Cells (Auto) 5.0 /HPF (0-13.0) 11/07/17 11:22 Urine WBC Clumps 3+ /HPF 11/07/17 11:22 Urine Mucus 3+ /HPF 11/07/17 11:22 - Imaging and Cardiology EKG: report reviewed Imaging and Cardiology: CT Abdomen IMPRESSION: Bilateral ureteral stents remain in place with new moderate right hydronephrosis and significant decrease left hydronephrosis with slight residual Nonobstructing bilateral renal calculi Scattered prominence of small and large bowel gas, without gross distention, may reflect paralytic ileus Assessment and Plan Advance Directives: Yes (Full code) VTE prophylaxis?: Chemical Plan of care discussed with patient/family: Yes - Patient Problems (1) SIRS (systemic inflammatory response syndrome) Current Visit: Yes Status: Acute Plan to address problem: Signs symptoms and Labs c/w SIRS IV Fluids and IV Abx (2) Acute pyelonephritis Current Visit: Yes Status: Acute Plan to address problem: IV fluids and IV abx. May need replacement of J stents Dr Mckee informed of the consent. (3) SILVIA (acute kidney injury) Current Visit: Yes Status: Acute Plan to address problem: IV fluids for now (4) DVT prophylaxis Current Visit: Yes Status: Acute Plan to address problem: On Heparin
[2017-11-07] MEDS ORDERED: SODIUM CHLORIDE FLUSH SYRINGE 10 ML IV PRN (23:36)
[2017-11-07] MEDS ORDERED: REGLAN IV PRN (23:36)
[2017-11-07] MEDS ORDERED: AMBIEN PO PRN (23:36)
[2017-11-08] MEDS: MORPHINE IV PRN ×4 (04:35→21:50)
[2017-11-08] MEDS ORDERED: PERCOCET 5/325 PO ONE (07:15)
[2017-11-08] MEDS: SODIUM CHLORIDE FLUSH SYRINGE 10 ML IV SCH ×2 (09:08→21:49)
--- NOTE | 2017-11-08 10:08 | Progress Note ---
<GERALDO PAREDES - Last Filed: 11/08/17 12:37> Assessment and Plan Assessment and plan: 27-year-old male admitted with chief complaint of bilateral flank pain. Patient had bilateral double-J ureteral stents placed in June 2017 for ureteric obstruction. SIRS (systemic inflammatory response syndrome) Improving, continue IV Fluids and IV Abx Acute pyelonephritis Continue IV fluids and IV abx, urine sent for culture May need replacement of J stents, Dr Mckee consulted SILVIA (acute kidney injury) Resolved, will continue IV fluids for now and monitor DVT prophylaxis SCDs History Interval history: Patient seen and examined. Appears to be in mild distress, complains of bilateral flank pain 04/07. Labs and nursing notes reviewed Hospitalist Physical - Constitutional Vitals: Temp Pulse Resp BP Pulse Ox 98.2 F 76 16 101/53 95 11/08/17 00:10 11/08/17 00:10 11/08/17 00:10 11/08/17 00:10 11/08/17 00:10 General appearance: Present: mild distress, well-nourished - EENT Eyes: Present: PERRL, EOM intact ENT: hearing intact, clear oral mucosa - Neck Neck: Present: supple, normal ROM - Respiratory Respiratory effort: normal Respiratory: bilateral: CTA - Cardiovascular Rhythm: regular Heart Sounds: Present: S1 & S2. Absent: rub, click - Extremities Extremities: no ischemia, No edema - Abdominal General gastrointestinal: soft, tender (Bilateral flank pain) - Integumentary Integumentary: Present: clear, warm, dry - Psychiatric Psychiatric: appropriate mood/affect, intact judgment & insight, cooperative - Neurologic Neurologic: CNII-XII intact, moves all extremities Results - Labs CBC & Chem 7: 11/08/17 09:35 11/08/17 09:35 Labs: Laboratory Last Values WBC 17.3 K/mm3 (4.5-11.0) H 11/07/17 10:57 RBC 4.92 M/mm3 (3.65-5.03) 11/07/17 10:57 Hgb 14.8 gm/dl (11.8-15.2) 11/07/17 10:57 Hct 44.6 % (35.5-45.6) 11/07/17 10:57 MCV 91 fl (84-94) 11/07/17 10:57 MCH 30 pg (28-32) 11/07/17 10:57 MCHC 33 % (32-34) 11/07/17 10:57 RDW 13.2 % (13.2-15.2) 11/07/17 10:57 Plt Count 316 K/mm3 (140-440) 11/07/17 10:57 Lymph % (Auto) 4.2 % (13.4-35.0) L 11/07/17 10:57 [place] % (Auto) 5.9 % (0.0-7.3) 11/07/17 10:57 Eos % (Auto) 0.0 % (0.0-4.3) 11/07/17 10:57 Baso % (Auto) 0.2 % (0.0-1.8) 11/07/17 10:57 Lymph # 0.7 K/mm3 (1.2-5.4) L 11/07/17 10:57 [place] # 1.0 K/mm3 (0.0-0.8) H 11/07/17 10:57 Eos # 0.0 K/mm3 (0.0-0.4) 11/07/17 10:57 Baso # 0.0 K/mm3 (0.0-0.1) 11/07/17 10:57 Seg Neutrophils % 89.7 % (40.0-70.0) H 11/07/17 10:57 Seg Neutrophils # 15.5 K/mm3 (1.8-7.7) H 11/07/17 10:57 Sodium 139 mmol/L (137-145) 11/07/17 10:57 Potassium 3.7 mmol/L (3.6-5.0) 11/07/17 10:57 Chloride 96.9 mmol/L (98-107) L 11/07/17 10:57 Carbon Dioxide 21 mmol/L (22-30) L 11/07/17 10:57 Anion Gap 25 mmol/L 11/07/17 10:57 BUN 23 mg/dL (9-20) H 11/07/17 10:57 Creatinine 1.8 mg/dL (0.8-1.5) H 11/07/17 10:57 Estimated GFR 55 ml/min 11/07/17 10:57 BUN/Creatinine Ratio 13 % 11/07/17 10:57 Glucose 136 mg/dL (75-100) H 11/07/17 10:57 Calcium 9.6 mg/dL (8.4-10.2) 11/07/17 10:57 Total Bilirubin 0.50 mg/dL (0.1-1.2) 11/07/17 10:57 Direct Bilirubin < 0.2 mg/dL (0-0.2) 11/07/17 10:57 Indirect Bilirubin 0.3 mg/dL 11/07/17 10:57 AST 19 units/L (5-40) 11/07/17 10:57 ALT 20 units/L (7-56) 11/07/17 10:57 Alkaline Phosphatase 61 units/L (35-129) 11/07/17 10:57 Total Creatine Kinase 90 units/L (55-170) 11/07/17 10:57 CK-MB (CK-2) < 1.0 ng/mL (0.0-4.0) 11/07/17 10:57 CK-MB (CK-2) Rel Index 1.1 (0-4) 11/07/17 10:57 Troponin T < 0.010 ng/mL (0.00-0.029) 11/07/17 10:57 Total Protein 8.7 g/dL (6.3-8.2) H 11/07/17 10:57 Albumin 4.6 g/dL (3.9-5) 11/07/17 10:57 Albumin/Globulin Ratio 1.1 % 11/07/17 10:57 Urine Color Red (Yellow) 11/07/17 11:22 Urine Turbidity Clear (Clear) 11/07/17 11:22 Urine pH 5.0 (5.0-7.0) 11/07/17 11:22 Ur Specific [place] 1.024 (1.003-1.030) 11/07/17 11:22 Urine Protein 100 mg/dl mg/dL (Negative) 11/07/17 11:22 Urine Glucose (UA) Neg mg/dL (Negative) 11/07/17 11:22 Urine Ketones Tr mg/dL (Negative) 11/07/17 11:22 Urine Blood Lg (Negative) 11/07/17 11:22 Urine Nitrite Neg (Negative) 11/07/17 11:22 Urine Bilirubin Neg (Negative) 11/07/17 11:22 Urine Urobilinogen < 2.0 mg/dL (<2.0) 11/07/17 11:22 Ur Leukocyte Esterase Lg (Negative) 11/07/17 11:22 Urine WBC (Auto) > 182.0 /HPF (0.0-6.0) H 11/07/17 11:22 Urine RBC (Auto) > 182.0 /HPF (0.0-6.0) 11/07/17 11:22 U Epithel Cells (Auto) 5.0 /HPF (0-13.0) 11/07/17 11:22 Urine WBC Clumps 3+ /HPF 11/07/17 11:22 Urine Mucus 3+ /HPF 11/07/17 11:22 <JESSICA TYLER M - Last Filed: 11/09/17 14:16> Assessment and Plan Assessment and plan: I saw and evaluated the patient. I agree with the findings and the plan of care as documented in the PA's progress. Hospitalist Physical - Constitutional Vitals: Temp Pulse Resp BP Pulse Ox 99.0 F 99 H 16 104/53 97 11/09/17 07:48 11/08/17 19:21 11/09/17 07:48 11/09/17 07:48 11/08/17 19:21 Results - Labs CBC & Chem 7: 11/09/17 05:33 11/09/17 05:33 Labs: Laboratory Last Values WBC 11.2 K/mm3 (4.5-11.0) H 11/09/17 05:33 RBC 3.97 M/mm3 (3.65-5.03) 11/09/17 05:33 Hgb 12.2 gm/dl (11.8-15.2) 11/09/17 05:33 Hct 35.7 % (35.5-45.6) 11/09/17 05:33 MCV 90 fl (84-94) 11/09/17 05:33 MCH 31 pg (28-32) 11/09/17 05:33 MCHC 34 % (32-34) 11/09/17 05:33 RDW 12.9 % (13.2-15.2) L 11/09/17 05:33 Plt Count 218 K/mm3 (140-440) 11/09/17 05:33 Lymph % (Auto) 17.1 % (13.4-35.0) 11/08/17 09:35 [place] % (Auto) Rn Cardiovascular 11/09/17 05:33 Eos % (Auto) 0.6 % (0.0-4.3) 11/08/17 09:35 Baso % (Auto) 0.2 % (0.0-1.8) 11/08/17 09:35 Lymph # 1.6 K/mm3 (1.2-5.4) 11/08/17 09:35 [place] # 1.2 K/mm3 (0.0-0.8) H 11/08/17 09:35 Eos # 0.1 K/mm3 (0.0-0.4) 11/08/17 09:35 Baso # 0.0 K/mm3 (0.0-0.1) 11/08/17 09:35 Add Manual Diff Complete 11/09/17 05:33 Total Counted 100 11/09/17 05:33 Seg Neutrophils % 69.7 % (40.0-70.0) 11/08/17 09:35 Seg Neuts % (Manual) 78.0 % (40.0-70.0) H 11/09/17 05:33 Band Neutrophils % 2.0 % 11/09/17 05:33 Lymphocytes % (Manual) 12.0 % (13.4-35.0) L 11/09/17 05:33 Reactive Lymphs % (Man) 0 % 11/09/17 05:33 Monocytes % (Manual) 8.0 % (0.0-7.3) H 11/09/17 05:33 Eosinophils % (Manual) 0 % (0.0-4.3) 11/09/17 05:33 Basophils % (Manual) 0 % (0.0-1.8) 11/09/17 05:33 Metamyelocytes % 0 % 11/09/17 05:33 Myelocytes % 0 % 11/09/17 05:33 Promyelocytes % 0 % 11/09/17 05:33 Blast Cells % 0 % 11/09/17 05:33 Nucleated RBC % Not Reportable 11/09/17 05:33 Seg Neutrophils # 6.6 K/mm3 (1.8-7.7) 11/08/17 09:35 Seg Neutrophils # Man 8.7 K/mm3 (1.8-7.7) H 11/09/17 05:33 Band Neutrophils # 0.2 K/mm3 11/09/17 05:33 Lymphocytes # (Manual) 1.3 K/mm3 (1.2-5.4) 11/09/17 05:33 Abs React Lymphs (Man) 0.0 K/mm3 11/09/17 05:33 Monocytes # (Manual) 0.9 K/mm3 (0.0-0.8) H 11/09/17 05:33 Eosinophils # (Manual) 0.0 K/mm3 (0.0-0.4) 11/09/17 05:33 Basophils # (Manual) 0.0 K/mm3 (0.0-0.1) 11/09/17 05:33 Metamyelocytes # 0.0 K/mm3 11/09/17 05:33 Myelocytes # 0.0 K/mm3 11/09/17 05:33 Promyelocytes # 0.0 K/mm3 11/09/17 05:33 Blast Cells # 0.0 K/mm3 11/09/17 05:33 WBC Morphology Not Reportable 11/09/17 05:33 Hypersegmented Neuts Not Reportable 11/09/17 05:33 Hyposegmented Neuts Not Reportable 11/09/17 05:33 Hypogranular Neuts Not Reportable 11/09/17 05:33 Smudge Cells Not Reportable 11/09/17 05:33 Toxic Granulation Not Reportable 11/09/17 05:33 Toxic Vacuolation Not Reportable 11/09/17 05:33 Dohle Bodies Not Reportable 11/09/17 05:33 Pelger-Huet Anomaly Not Reportable 11/09/17 05:33 Peter Rods Not Reportable 11/09/17 05:33 Platelet Estimate Appears normal 11/09/17 05:33 Clumped Platelets Not Reportable 11/09/17 05:33 Plt Clumps, EDTA Not Reportable 11/09/17 05:33 Large Platelets Few 11/09/17 05:33 Giant Platelets Not Reportable 11/09/17 05:33 Platelet Satelliting Not Reportable 11/09/17 05:33 Plt Morphology Comment Not Reportable 11/09/17 05:33 RBC Morphology Normal 11/09/17 05:33 Dimorphic RBCs Not Reportable 11/09/17 05:33 Polychromasia Not Reportable 11/09/17 05:33 Hypochromasia Not Reportable 11/09/17 05:33 Poikilocytosis Not Reportable 11/09/17 05:33 Anisocytosis Not Reportable 11/09/17 05:33 Microcytosis Not Reportable 11/09/17 05:33 Macrocytosis Not Reportable 11/09/17 05:33 Spherocytes Not Reportable 11/09/17 05:33 Pappenheimer Bodies Not Reportable 11/09/17 05:33 Sickle Cells Not Reportable 11/09/17 05:33 Target Cells Not Reportable 11/09/17 05:33 Tear Drop Cells Not Reportable 11/09/17 05:33 Ovalocytes Not Reportable 11/09/17 05:33 Helmet Cells Not Reportable 11/09/17 05:33 [place] Bodies Not Reportable 11/09/17 05:33 [place] Rings Not Reportable 11/09/17 05:33 [place] Cells Not Reportable 11/09/17 05:33 Bite Cells Not Reportable 11/09/17 05:33 Crenated Cell Not Reportable 11/09/17 05:33 Elliptocytes Not Reportable 11/09/17 05:33 Acanthocytes (Spur) Not Reportable 11/09/17 05:33 Rouleaux Not Reportable 11/09/17 05:33 Hemoglobin C Crystals Not Reportable 11/09/17 05:33 Schistocytes Not Reportable 11/09/17 05:33 Malaria parasites Not Reportable 11/09/17 05:33 Louis Bodies Not Reportable 11/09/17 05:33 Hem Pathologist Commnt No 11/09/17 05:33 Sodium 135 mmol/L (137-145) L 11/09/17 05:33 Potassium 3.2 mmol/L (3.6-5.0) L 11/09/17 05:33 Chloride 95.9 mmol/L (98-107) L 11/09/17 05:33 Carbon Dioxide 25 mmol/L (22-30) 11/09/17 05:33 Anion Gap 17 mmol/L 11/09/17 05:33 BUN 8 mg/dL (9-20) L 11/09/17 05:33 Creatinine 0.8 mg/dL (0.8-1.5) 11/09/17 05:33 Estimated GFR > 60 ml/min 11/09/17 05:33 BUN/Creatinine Ratio 10 % 11/09/17 05:33 Glucose 116 mg/dL (75-100) H 11/09/17 05:33 Calcium 9.0 mg/dL (8.4-10.2) 11/09/17 05:33 Total Bilirubin 0.50 mg/dL (0.1-1.2) 11/07/17 10:57 Direct Bilirubin < 0.2 mg/dL (0-0.2) 11/07/17 10:57 Indirect Bilirubin 0.3 mg/dL 11/07/17 10:57 AST 19 units/L (5-40) 11/07/17 10:57 ALT 20 units/L (7-56) 11/07/17 10:57 Alkaline Phosphatase 61 units/L (35-129) 11/07/17 10:57 Total Creatine Kinase 90 units/L (55-170) 11/07/17 10:57 CK-MB (CK-2) < 1.0 ng/mL (0.0-4.0) 11/07/17 10:57 CK-MB (CK-2) Rel Index 1.1 (0-4) 11/07/17 10:57 Troponin T < 0.010 ng/mL (0.00-0.029) 11/07/17 10:57 Total Protein 8.7 g/dL (6.3-8.2) H 11/07/17 10:57 Albumin 4.6 g/dL (3.9-5) 11/07/17 10:57 Albumin/Globulin Ratio 1.1 % 11/07/17 10:57 Urine Color Red (Yellow) 11/07/17 11:22 Urine Turbidity Clear (Clear) 11/07/17 11:22 Urine pH 5.0 (5.0-7.0) 11/07/17 11:22 Ur Specific [place] 1.024 (1.003-1.030) 11/07/17 11:22 Urine Protein 100 mg/dl mg/dL (Negative) 11/07/17 11:22 Urine Glucose (UA) Neg mg/dL (Negative) 11/07/17 11:22 Urine Ketones Tr mg/dL (Negative) 11/07/17 11:22 Urine Blood Lg (Negative) 11/07/17 11:22 Urine Nitrite Neg (Negative) 11/07/17 11:22 Urine Bilirubin Neg (Negative) 11/07/17 11:22 Urine Urobilinogen < 2.0 mg/dL (<2.0) 11/07/17 11:22 Ur Leukocyte Esterase Lg (Negative) 11/07/17 11:22 Urine WBC (Auto) > 182.0 /HPF (0.0-6.0) H 11/07/17 11:22 Urine RBC (Auto) > 182.0 /HPF (0.0-6.0) 11/07/17 11:22 U Epithel Cells (Auto) 5.0 /HPF (0-13.0) 11/07/17 11:22 Urine WBC Clumps 3+ /HPF 11/07/17 11:22 Urine Mucus 3+ /HPF 11/07/17 11:22
[2017-11-08 10:27] LABS: Basophils % (Auto) 0.2 % (0.0-1.8); Eosinophils # (Auto) 0.1 K/mm3 (0.0-0.4); Eosinophils % (Auto) 0.6 % (0.0-4.3); Hemoglobin 12.8 gm/dl (11.8-15.2); Lymphocytes # (Auto) 1.6 K/mm3 (1.2-5.4); Lymphocytes % (Auto) 17.1 % (13.4-35.0); Mean Corpuscular HGB Conc 34 % (32-34); Mean Corpuscular Hemoglobin 30 pg (28-32); Mean Corpuscular Volume 90 fl (84-94); Monocytes # (Auto) 1.2 K/mm3 (0.0-0.8); Monocytes % (Auto) 12.4 % (0.0-7.3); Platelet Count 231 K/mm3 (140-440); Red Blood Count 4.22 M/mm3 (3.65-5.03); Red Cell Distribution Width 13.2 % (13.2-15.2)
[2017-11-08 10:35] LABS: BUN/Creatinine Ratio 19; Blood Urea Nitrogen 15 mg/dL (9-20); Calcium 9.2 mg/dL (8.4-10.2); Hemolysis Index 35
[2017-11-08] MEDS: cefTRIAXone 2 GM in NACL 0.9% 20 ML IV SCH (11:22)
[2017-11-08] MEDS ORDERED: ATIVAN IM PRN (11:33)
[2017-11-08] MEDS ORDERED: DILAUDID PO PRN (13:22)
[2017-11-08] MEDS ORDERED: ATIVAN IV ONE (15:30)
[2017-11-08] MEDS: D5NS 1,000 ML IV SCH (15:35)
[2017-11-08] MEDS: PERCOCET 5/325 PO PRN (20:26)
[2017-11-09] MEDS: MORPHINE IV PRN ×5 (01:38→19:53)
[2017-11-09] MEDS: PERCOCET 5/325 PO PRN ×2 (04:26→13:20)
[2017-11-09] MEDS: D5NS 1,000 ML IV SCH (04:27)
[2017-11-09 06:15] LABS: Hematocrit 35.7 % (35.5-45.6); Hemoglobin 12.2 gm/dl (11.8-15.2); Mean Corpuscular HGB Conc 34 % (32-34); Mean Corpuscular Hemoglobin 31 pg (28-32); Mean Corpuscular Volume 90 fl (84-94); Platelet Count 218 K/mm3 (140-440); Red Blood Count 3.97 M/mm3 (3.65-5.03); Red Cell Distribution Width 12.9 % (13.2-15.2)
[2017-11-09 06:37] LABS: BUN/Creatinine Ratio 10; Blood Urea Nitrogen 8 mg/dL (9-20); Hemolysis Index 6
[2017-11-09 07:31] LABS: Band Neutrophils # (Manual) 0.2 K/mm3; Basophils % (Manual) 0 % (0.0-1.8); Eosinophils % (Manual) 0 % (0.0-4.3); Large Platelets Few; RBC Morphology Normal; Total Cells Counted 100
[2017-11-09] MEDS ORDERED: POTASSIUM CHLORIDE FEEDTUBE ONE (08:00)
[2017-11-09] MEDS: NACL 0.9% 1000 ML 1,000 ML IV SCH ×2 (08:39→17:44)
[2017-11-09] MEDS: TYLENOL PO PRN ×2 (08:43→17:40)
[2017-11-09] MEDS: SODIUM CHLORIDE FLUSH SYRINGE 10 ML IV SCH ×2 (10:33→21:05)
[2017-11-09] MEDS: cefTRIAXone 2 GM in NACL 0.9% 20 ML IV SCH (10:53)
--- NOTE | 2017-11-09 14:31 | Progress Note ---
Assessment and Plan Assessment and plan: 27-year-old male admitted with chief complaint of bilateral flank pain. Patient had bilateral double-J ureteral stents placed in June 2017 for ureteric obstruction. Sepsis Acute pyelonephritis Continue IV fluids and IV ceftriaxone Urology consulted and notified SILVIA (acute kidney injury) Resolved, will continue IV fluids Hypokalemia - Repleted we'll check BMP tomorrow morning DVT prophylaxis SCDs History Interval history: Patient was seen and evaluated this morning, patient said the pain and shaking is getting better. Hospitalist Physical - Physical exam Narrative exam: Not in cardiopulmonary distress. The patient appeared well nourished and normally developed. Vital signs as documented. Head exam is unremarkable. No scleral icterus . Neck is without jugular venous distension, thyromegaly, or carotid bruits. Lungs are clear to auscultation. Cardiac exam reveals regular rate and Rhythm. Abdominal exam reveals abdominal tenderness. Extremities are nonedematous and both femoral and pedal pulses are normal. FIELD TRAINER: Alert and oriented 3. No focal weakness. - Constitutional Vitals: Temp Pulse Resp BP Pulse Ox 99.0 F 99 H 16 104/53 97 11/09/17 07:48 11/08/17 19:21 11/09/17 07:48 11/09/17 07:48 11/08/17 19:21 General appearance: Present: mild distress, well-nourished Results - Labs CBC & Chem 7: 11/09/17 05:33 11/09/17 05:33 Labs: Laboratory Last Values WBC 11.2 K/mm3 (4.5-11.0) H 11/09/17 05:33 RBC 3.97 M/mm3 (3.65-5.03) 11/09/17 05:33 Hgb 12.2 gm/dl (11.8-15.2) 11/09/17 05:33 Hct 35.7 % (35.5-45.6) 11/09/17 05:33 MCV 90 fl (84-94) 11/09/17 05:33 MCH 31 pg (28-32) 11/09/17 05:33 MCHC 34 % (32-34) 11/09/17 05:33 RDW 12.9 % (13.2-15.2) L 11/09/17 05:33 Plt Count 218 K/mm3 (140-440) 11/09/17 05:33 Lymph % (Auto) 17.1 % (13.4-35.0) 11/08/17 09:35 [place] % (Auto) [employer] Super[employer] 11/09/17 05:33 Eos % (Auto) 0.6 % (0.0-4.3) 11/08/17 09:35 Baso % (Auto) 0.2 % (0.0-1.8) 11/08/17 09:35 Lymph # 1.6 K/mm3 (1.2-5.4) 11/08/17 09:35 [place] # 1.2 K/mm3 (0.0-0.8) H 11/08/17 09:35 Eos # 0.1 K/mm3 (0.0-0.4) 11/08/17 09:35 Baso # 0.0 K/mm3 (0.0-0.1) 11/08/17 09:35 Add Manual Diff Complete 11/09/17 05:33 Total Counted 100 11/09/17 05:33 Seg Neutrophils % 69.7 % (40.0-70.0) 11/08/17 09:35 Seg Neuts % (Manual) 78.0 % (40.0-70.0) H 11/09/17 05:33 Band Neutrophils % 2.0 % 11/09/17 05:33 Lymphocytes % (Manual) 12.0 % (13.4-35.0) L 11/09/17 05:33 Reactive Lymphs % (Man) 0 % 11/09/17 05:33 Monocytes % (Manual) 8.0 % (0.0-7.3) H 11/09/17 05:33 Eosinophils % (Manual) 0 % (0.0-4.3) 11/09/17 05:33 Basophils % (Manual) 0 % (0.0-1.8) 11/09/17 05:33 Metamyelocytes % 0 % 11/09/17 05:33 Myelocytes % 0 % 11/09/17 05:33 Promyelocytes % 0 % 11/09/17 05:33 Blast Cells % 0 % 11/09/17 05:33 Nucleated RBC % Not Reportable 11/09/17 05:33 Seg Neutrophils # 6.6 K/mm3 (1.8-7.7) 11/08/17 09:35 Seg Neutrophils # Man 8.7 K/mm3 (1.8-7.7) H 11/09/17 05:33 Band Neutrophils # 0.2 K/mm3 11/09/17 05:33 Lymphocytes # (Manual) 1.3 K/mm3 (1.2-5.4) 11/09/17 05:33 Abs React Lymphs (Man) 0.0 K/mm3 11/09/17 05:33 Monocytes # (Manual) 0.9 K/mm3 (0.0-0.8) H 11/09/17 05:33 Eosinophils # (Manual) 0.0 K/mm3 (0.0-0.4) 11/09/17 05:33 Basophils # (Manual) 0.0 K/mm3 (0.0-0.1) 11/09/17 05:33 Metamyelocytes # 0.0 K/mm3 11/09/17 05:33 Myelocytes # 0.0 K/mm3 11/09/17 05:33 Promyelocytes # 0.0 K/mm3 11/09/17 05:33 Blast Cells # 0.0 K/mm3 11/09/17 05:33 WBC Morphology Not Reportable 11/09/17 05:33 Hypersegmented Neuts Not Reportable 11/09/17 05:33 Hyposegmented Neuts Not Reportable 11/09/17 05:33 Hypogranular Neuts Not Reportable 11/09/17 05:33 Smudge Cells Not Reportable 11/09/17 05:33 Toxic Granulation Not Reportable 11/09/17 05:33 Toxic Vacuolation Not Reportable 11/09/17 05:33 Dohle Bodies Not Reportable 11/09/17 05:33 Pelger-Huet Anomaly Not Reportable 11/09/17 05:33 Peter Rods Not Reportable 11/09/17 05:33 Platelet Estimate Appears normal 11/09/17 05:33 Clumped Platelets Not Reportable 11/09/17 05:33 Plt Clumps, EDTA Not Reportable 11/09/17 05:33 Large Platelets Few 11/09/17 05:33 Giant Platelets Not Reportable 11/09/17 05:33 Platelet Satelliting Not Reportable 11/09/17 05:33 Plt Morphology Comment Not Reportable 11/09/17 05:33 RBC Morphology Normal 11/09/17 05:33 Dimorphic RBCs Not Reportable 11/09/17 05:33 Polychromasia Not Reportable 11/09/17 05:33 Hypochromasia Not Reportable 11/09/17 05:33 Poikilocytosis Not Reportable 11/09/17 05:33 Anisocytosis Not Reportable 11/09/17 05:33 Microcytosis Not Reportable 11/09/17 05:33 Macrocytosis Not Reportable 11/09/17 05:33 Spherocytes Not Reportable 11/09/17 05:33 Pappenheimer Bodies Not Reportable 11/09/17 05:33 Sickle Cells Not Reportable 11/09/17 05:33 Target Cells Not Reportable 11/09/17 05:33 Tear Drop Cells Not Reportable 11/09/17 05:33 Ovalocytes Not Reportable 11/09/17 05:33 Helmet Cells Not Reportable 11/09/17 05:33 [place] Bodies Not Reportable 11/09/17 05:33 [place] Rings Not Reportable 11/09/17 05:33 [place] Cells Not Reportable 11/09/17 05:33 Bite Cells Not Reportable 11/09/17 05:33 Crenated Cell Not Reportable 11/09/17 05:33 Elliptocytes Not Reportable 11/09/17 05:33 Acanthocytes (Spur) Not Reportable 11/09/17 05:33 Rouleaux Not Reportable 11/09/17 05:33 Hemoglobin C Crystals Not Reportable 11/09/17 05:33 Schistocytes Not Reportable 11/09/17 05:33 Malaria parasites Not Reportable 11/09/17 05:33 Louis Bodies Not Reportable 11/09/17 05:33 Hem Pathologist Commnt No 11/09/17 05:33 Sodium 135 mmol/L (137-145) L 11/09/17 05:33 Potassium 3.2 mmol/L (3.6-5.0) L 11/09/17 05:33 Chloride 95.9 mmol/L (98-107) L 11/09/17 05:33 Carbon Dioxide 25 mmol/L (22-30) 11/09/17 05:33 Anion Gap 17 mmol/L 11/09/17 05:33 BUN 8 mg/dL (9-20) L 11/09/17 05:33 Creatinine 0.8 mg/dL (0.8-1.5) 11/09/17 05:33 Estimated GFR > 60 ml/min 11/09/17 05:33 BUN/Creatinine Ratio 10 % 11/09/17 05:33 Glucose 116 mg/dL (75-100) H 11/09/17 05:33 Calcium 9.0 mg/dL (8.4-10.2) 11/09/17 05:33 Total Bilirubin 0.50 mg/dL (0.1-1.2) 11/07/17 10:57 Direct Bilirubin < 0.2 mg/dL (0-0.2) 11/07/17 10:57 Indirect Bilirubin 0.3 mg/dL 11/07/17 10:57 AST 19 units/L (5-40) 11/07/17 10:57 ALT 20 units/L (7-56) 11/07/17 10:57 Alkaline Phosphatase 61 units/L (35-129) 11/07/17 10:57 Total Creatine Kinase 90 units/L (55-170) 11/07/17 10:57 CK-MB (CK-2) < 1.0 ng/mL (0.0-4.0) 11/07/17 10:57 CK-MB (CK-2) Rel Index 1.1 (0-4) 11/07/17 10:57 Troponin T < 0.010 ng/mL (0.00-0.029) 11/07/17 10:57 Total Protein 8.7 g/dL (6.3-8.2) H 11/07/17 10:57 Albumin 4.6 g/dL (3.9-5) 11/07/17 10:57 Albumin/Globulin Ratio 1.1 % 11/07/17 10:57 Urine Color Red (Yellow) 11/07/17 11:22 Urine Turbidity Clear (Clear) 11/07/17 11:22 Urine pH 5.0 (5.0-7.0) 11/07/17 11:22 Ur Specific [place] 1.024 (1.003-1.030) 11/07/17 11:22 Urine Protein 100 mg/dl mg/dL (Negative) 11/07/17 11:22 Urine Glucose (UA) Neg mg/dL (Negative) 11/07/17 11:22 Urine Ketones Tr mg/dL (Negative) 11/07/17 11:22 Urine Blood Lg (Negative) 11/07/17 11:22 Urine Nitrite Neg (Negative) 11/07/17 11:22 Urine Bilirubin Neg (Negative) 11/07/17 11:22 Urine Urobilinogen < 2.0 mg/dL (<2.0) 11/07/17 11:22 Ur Leukocyte Esterase Lg (Negative) 11/07/17 11:22 Urine WBC (Auto) > 182.0 /HPF (0.0-6.0) H 11/07/17 11:22 Urine RBC (Auto) > 182.0 /HPF (0.0-6.0) 11/07/17 11:22 U Epithel Cells (Auto) 5.0 /HPF (0-13.0) 11/07/17 11:22 Urine WBC Clumps 3+ /HPF 11/07/17 11:22 Urine Mucus 3+ /HPF 11/07/17 11:22
--- NOTE | 2017-11-09 17:57 | Consultation ---
History of Present Illness Consult date: 11/09/17 History of present illness: thanks for the consult the patient is seen and assessed there are myoclonic jerks of the left and right face suspect seizures related to RF king EEG and further w/u otherwise neuro exam is OK will follow Medications and Allergies Allergies Allergy/AdvReac Type Severity Reaction Status Date / Time tramadol Allergy Vomiting Verified 10/03/17 22:03 Home Medications Medication Instructions Recorded Confirmed Last Taken Type Acetaminophen [Tylenol Extra 500 mg PO QID PRN 10/07/17 11/07/17 10/07/17 History Strength] Active Meds: Active Medications Acetaminophen (Tylenol) 650 mg PO Q4H PRN PRN Reason: Pain MILD(1-3)/Fever >100.5/PEREZ Last Admin: 11/09/17 17:40 Dose: 650 mg Alprazolam (Xanax) 0.5 mg PO TID MARCIA Enoxaparin Sodium (Lovenox) 40 mg SUB-Q QDAY@2200 MARCIA Ceftriaxone Sodium 2 gm/ (Sodium Chloride) 20 mls @ 20 mls/10 min IV Q24HR MARCIA ; Protocol Last Admin: 11/09/17 10:53 Dose: 20 mls/10 min Sodium Chloride (Nacl 0.9% 1000 Ml) 1,000 mls @ 100 mls/hr IV DIRECT MARCIA Last Admin: 11/09/17 17:44 Dose: 100 mls/hr Metoclopramide HCl (Reglan) 5 mg IV Q6H PRN PRN Reason: Nausea And Vomiting Morphine Sulfate (Morphine) 4 mg IV Q4H PRN PRN Reason: Pain, Moderate (4-6) Last Admin: 11/09/17 16:04 Dose: 4 mg Ondansetron HCl (Zofran) 4 mg IV Q8H PRN PRN Reason: Nausea And Vomiting Oxycodone/Acetaminophen (Percocet 5/325) 2 tab PO Q8H PRN PRN Reason: Pain, Moderate (4-6) Last Admin: 11/09/17 13:20 Dose: 2 tab Sodium Chloride (Sodium Chloride Flush Syringe 10 Ml) 10 ml IV BID MARCIA Last Admin: 11/09/17 10:33 Dose: Not Given Sodium Chloride (Sodium Chloride Flush Syringe 10 Ml) 10 ml IV PRN PRN PRN Reason: LINE FLUSH Zolpidem Tartrate (Ambien) 5 mg PO QHS PRN PRN Reason: Insomnia Physical Examination - Vital Signs Vital Signs: Vital Signs Pulse Resp 139 H 51 H 11/07/17 10:20 11/07/17 10:20 Results - Laboratory Findings CBC and BMP: 11/09/17 05:33 11/09/17 05:33 Abnormal Lab Findings: Abnormal Labs 11/07/17 11/07/17 11/07/17 10:57 10:57 11:22 WBC 17.3 H RDW Lymph % (Auto) 4.2 L Yell % (Auto) Lymph # 0.7 L Yell # 1.0 H Seg Neutrophils % 89.7 H Seg Neuts % (Manual) Lymphocytes % (Manual) Monocytes % (Manual) Seg Neutrophils # 15.5 H Seg Neutrophils # Man Monocytes # (Manual) Sodium Potassium Chloride 96.9 L Carbon Dioxide 21 L BUN 23 H Creatinine 1.8 H Glucose 136 H Total Protein 8.7 H Urine WBC (Auto) > 182.0 H 11/08/17 11/09/17 11/09/17 09:35 05:33 05:33 WBC 11.2 H RDW 12.9 L Lymph % (Auto) Yell % (Auto) 12.4 H Lymph # Yell # 1.2 H Seg Neutrophils % Seg Neuts % (Manual) 78.0 H Lymphocytes % (Manual) 12.0 L Monocytes % (Manual) 8.0 H Seg Neutrophils # Seg Neutrophils # Man 8.7 H Monocytes # (Manual) 0.9 H Sodium 135 L Potassium 3.2 L Chloride 95.9 L Carbon Dioxide BUN 8 L Creatinine Glucose 116 H Total Protein Urine WBC (Auto)
[2017-11-09] MEDS ORDERED: NACL ONE (18:32)
--- NOTE | 2017-11-09 19:20 | Cat Scan Report ---
FINAL REPORT PROCEDURE: CT HEAD/BRAIN WO CON TECHNIQUE: Computerized tomography of the head was performed without contrast material. HISTORY: ams COMPARISON: No prior studies are available for comparison. FINDINGS: Skull and scalp: Normal. Paranasal sinuses: Normal. Ventricles and subarachnoid spaces: Normal. Cerebrum: No evidence of hemorrhage, acute infarction or mass . Cerebellum and brainstem: No evidence of hemorrhage, acute infarction or mass. Vasculature: Normal. Comments: None. IMPRESSION: Normal Examination
[2017-11-09] MEDS: XANAX PO SCH (19:53)
[2017-11-09] MEDS: LOVENOX SUB-Q SCH (21:33)
[2017-11-10] MEDS: MORPHINE IV PRN ×4 (04:06→17:57)
[2017-11-10] MEDS: NACL 0.9% 1000 ML 1,000 ML IV SCH ×2 (04:08→14:35)
[2017-11-10] MEDS: XANAX PO SCH ×3 (08:26→20:08)
[2017-11-10] MEDS: SODIUM CHLORIDE FLUSH SYRINGE 10 ML IV SCH ×2 (10:00→21:54)
[2017-11-10] MEDS: cefTRIAXone 2 GM in NACL 0.9% 20 ML IV SCH (10:00)
[2017-11-10] MEDS ORDERED: MIRALAX 3350 PO PRN (10:02)
--- NOTE | 2017-11-10 11:26 | Consultation ---
History of Present Illness Consult date: 11/10/17 History of present illness: went over the CT of the head and it is normal,,, seizure control better plan EEG saturday suspect metabolic factors causation thanks plan to follow up Medications and Allergies Allergies Allergy/AdvReac Type Severity Reaction Status Date / Time tramadol Allergy Vomiting Verified 10/03/17 22:03 Home Medications Medication Instructions Recorded Confirmed Last Taken Type Acetaminophen [Tylenol Extra 500 mg PO QID PRN 10/07/17 11/07/17 10/07/17 History Strength] Active Meds: Active Medications Acetaminophen (Tylenol) 650 mg PO Q4H PRN PRN Reason: Pain MILD(1-3)/Fever >100.5/PEREZ Last Admin: 11/09/17 17:40 Dose: 650 mg Alprazolam (Xanax) 0.5 mg PO TID [facility] Last Admin: 11/10/17 08:26 Dose: 0.5 mg Enoxaparin Sodium (Lovenox) 40 mg SUB-Q QDAY@2200 MARCIA Last Admin: 11/09/17 21:33 Dose: Not Given Ceftriaxone Sodium 2 gm/ (Sodium Chloride) 20 mls @ 20 mls/10 min IV Q24HR MARCIA ; Protocol Last Admin: 11/10/17 10:00 Dose: 20 mls/10 min Sodium Chloride (Nacl 0.9% 1000 Ml) 1,000 mls @ 100 mls/hr IV DIRECT MARCIA Last Admin: 11/10/17 04:08 Dose: 100 mls/hr Metoclopramide HCl (Reglan) 5 mg IV Q6H PRN PRN Reason: Nausea And Vomiting Morphine Sulfate (Morphine) 4 mg IV Q4H PRN PRN Reason: Pain, Moderate (4-6) Last Admin: 11/10/17 08:27 Dose: 4 mg Ondansetron HCl (Zofran) 4 mg IV Q8H PRN PRN Reason: Nausea And Vomiting Oxycodone/Acetaminophen (Percocet 5/325) 2 tab PO Q8H PRN PRN Reason: Pain, Moderate (4-6) Last Admin: 11/09/17 13:20 Dose: 2 tab Polyethylene Glycol (Miralax 3350) 17 gm PO BID PRN PRN Reason: Constipation Sodium Chloride (Sodium Chloride Flush Syringe 10 Ml) 10 ml IV BID MARCIA Last Admin: 11/10/17 10:00 Dose: 10 ml Sodium Chloride (Sodium Chloride Flush Syringe 10 Ml) 10 ml IV PRN PRN PRN Reason: LINE FLUSH Zolpidem Tartrate (Ambien) 5 mg PO QHS PRN PRN Reason: Insomnia Physical Examination - Vital Signs Vital Signs: Vital Signs Pulse Resp 139 H 51 H 11/07/17 10:20 11/07/17 10:20 Results - Laboratory Findings CBC and BMP: 11/09/17 05:33 11/09/17 05:33 Abnormal Lab Findings: Abnormal Labs 11/07/17 11/07/17 11/07/17 10:57 10:57 11:22 WBC 17.3 H RDW Lymph % (Auto) 4.2 L [place] % (Auto) Lymph # 0.7 L [place] # 1.0 H Seg Neutrophils % 89.7 H Seg Neuts % (Manual) Lymphocytes % (Manual) Monocytes % (Manual) Seg Neutrophils # 15.5 H Seg Neutrophils # Man Monocytes # (Manual) Sodium Potassium Chloride 96.9 L Carbon Dioxide 21 L BUN 23 H Creatinine 1.8 H Glucose 136 H Total Protein 8.7 H Urine WBC (Auto) > 182.0 H 11/08/17 11/09/17 11/09/17 09:35 05:33 05:33 WBC 11.2 H RDW 12.9 L Lymph % (Auto) [place] % (Auto) 12.4 H Lymph # [place] # 1.2 H Seg Neutrophils % Seg Neuts % (Manual) 78.0 H Lymphocytes % (Manual) 12.0 L Monocytes % (Manual) 8.0 H Seg Neutrophils # Seg Neutrophils # Man 8.7 H Monocytes # (Manual) 0.9 H Sodium 135 L Potassium 3.2 L Chloride 95.9 L Carbon Dioxide BUN 8 L Creatinine Glucose 116 H Total Protein Urine WBC (Auto)
--- NOTE | 2017-11-10 14:25 | Progress Note ---
Assessment and Plan Assessment and plan: 27-year-old male admitted with chief complaint of bilateral flank pain. Patient had bilateral double-J ureteral stents placed in June 2017 for ureteric obstruction. Sepsis Acute pyelonephritis Continue IV fluids and IV ceftriaxone Urine culture is positive sensitivity is pending History of bilateral ureteral stent Urology consulted and notified SILVIA (acute kidney injury) Resolved, will continue IV fluids Hypokalemia - Repleted we'll check BMP tomorrow morning DVT prophylaxis SCDs History Interval history: Patient was seen and evaluated this morning, still have pain and jerking. Hospitalist Physical - Physical exam Narrative exam: Not in cardiopulmonary distress. The patient appeared well nourished and normally developed. Vital signs as documented. Head exam is unremarkable. No scleral icterus . Neck is without jugular venous distension, thyromegaly, or carotid bruits. Lungs are clear to auscultation. Cardiac exam reveals regular rate and Rhythm. Abdominal exam reveals abdominal tenderness. Extremities are nonedematous and both femoral and pedal pulses are normal. 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 No focal weakness. - Constitutional Vitals: Temp Pulse Resp BP Pulse Ox 98.3 F 103 H 20 123/70 97 11/10/17 08:04 11/10/17 08:04 11/10/17 08:27 11/10/17 08:04 11/10/17 08:04 General appearance: Present: mild distress, well-nourished Results - Labs CBC & Chem 7: 11/09/17 05:33 11/09/17 05:33 Labs: Laboratory Last Values WBC 11.2 K/mm3 (4.5-11.0) H 11/09/17 05:33 RBC 3.97 M/mm3 (3.65-5.03) 11/09/17 05:33 Hgb 12.2 gm/dl (11.8-15.2) 11/09/17 05:33 Hct 35.7 % (35.5-45.6) 11/09/17 05:33 MCV 90 fl (84-94) 11/09/17 05:33 MCH 31 pg (28-32) 11/09/17 05:33 MCHC 34 % (32-34) 11/09/17 05:33 RDW 12.9 % (13.2-15.2) L 11/09/17 05:33 Plt Count 218 K/mm3 (140-440) 11/09/17 05:33 Lymph % (Auto) 17.1 % (13.4-35.0) 11/08/17 09:35 [place] % (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 11/09/17 05:33 Eos % (Auto) 0.6 % (0.0-4.3) 11/08/17 09:35 Baso % (Auto) 0.2 % (0.0-1.8) 11/08/17 09:35 Lymph # 1.6 K/mm3 (1.2-5.4) 11/08/17 09:35 [place] # 1.2 K/mm3 (0.0-0.8) H 11/08/17 09:35 Eos # 0.1 K/mm3 (0.0-0.4) 11/08/17 09:35 Baso # 0.0 K/mm3 (0.0-0.1) 11/08/17 09:35 Add Manual Diff Complete 11/09/17 05:33 Total Counted 100 11/09/17 05:33 Seg Neutrophils % 69.7 % (40.0-70.0) 11/08/17 09:35 Seg Neuts % (Manual) 78.0 % (40.0-70.0) H 11/09/17 05:33 Band Neutrophils % 2.0 % 11/09/17 05:33 Lymphocytes % (Manual) 12.0 % (13.4-35.0) L 11/09/17 05:33 Reactive Lymphs % (Man) 0 % 11/09/17 05:33 Monocytes % (Manual) 8.0 % (0.0-7.3) H 11/09/17 05:33 Eosinophils % (Manual) 0 % (0.0-4.3) 11/09/17 05:33 Basophils % (Manual) 0 % (0.0-1.8) 11/09/17 05:33 Metamyelocytes % 0 % 11/09/17 05:33 Myelocytes % 0 % 11/09/17 05:33 Promyelocytes % 0 % 11/09/17 05:33 Blast Cells % 0 % 11/09/17 05:33 Nucleated RBC % Not Reportable 11/09/17 05:33 Seg Neutrophils # 6.6 K/mm3 (1.8-7.7) 11/08/17 09:35 Seg Neutrophils # Man 8.7 K/mm3 (1.8-7.7) H 11/09/17 05:33 Band Neutrophils # 0.2 K/mm3 11/09/17 05:33 Lymphocytes # (Manual) 1.3 K/mm3 (1.2-5.4) 11/09/17 05:33 Abs React Lymphs (Man) 0.0 K/mm3 11/09/17 05:33 Monocytes # (Manual) 0.9 K/mm3 (0.0-0.8) H 11/09/17 05:33 Eosinophils # (Manual) 0.0 K/mm3 (0.0-0.4) 11/09/17 05:33 Basophils # (Manual) 0.0 K/mm3 (0.0-0.1) 11/09/17 05:33 Metamyelocytes # 0.0 K/mm3 11/09/17 05:33 Myelocytes # 0.0 K/mm3 11/09/17 05:33 Promyelocytes # 0.0 K/mm3 11/09/17 05:33 Blast Cells # 0.0 K/mm3 11/09/17 05:33 WBC Morphology Not Reportable 11/09/17 05:33 Hypersegmented Neuts Not Reportable 11/09/17 05:33 Hyposegmented Neuts Not Reportable 11/09/17 05:33 Hypogranular Neuts Not Reportable 11/09/17 05:33 Smudge Cells Not Reportable 11/09/17 05:33 Toxic Granulation Not Reportable 11/09/17 05:33 Toxic Vacuolation Not Reportable 11/09/17 05:33 Dohle Bodies Not Reportable 11/09/17 05:33 Pelger-Huet Anomaly Not Reportable 11/09/17 05:33 Peter Rods Not Reportable 11/09/17 05:33 Platelet Estimate Appears normal 11/09/17 05:33 Clumped Platelets Not Reportable 11/09/17 05:33 Plt Clumps, EDTA Not Reportable 11/09/17 05:33 Large Platelets Few 11/09/17 05:33 Giant Platelets Not Reportable 11/09/17 05:33 Platelet Satelliting Not Reportable 11/09/17 05:33 Plt Morphology Comment Not Reportable 11/09/17 05:33 RBC Morphology Normal 11/09/17 05:33 Dimorphic RBCs Not Reportable 11/09/17 05:33 Polychromasia Not Reportable 11/09/17 05:33 Hypochromasia Not Reportable 11/09/17 05:33 Poikilocytosis Not Reportable 11/09/17 05:33 Anisocytosis Not Reportable 11/09/17 05:33 Microcytosis Not Reportable 11/09/17 05:33 Macrocytosis Not Reportable 11/09/17 05:33 Spherocytes Not Reportable 11/09/17 05:33 Pappenheimer Bodies Not Reportable 11/09/17 05:33 Sickle Cells Not Reportable 11/09/17 05:33 Target Cells Not Reportable 11/09/17 05:33 Tear Drop Cells Not Reportable 11/09/17 05:33 Ovalocytes Not Reportable 11/09/17 05:33 Helmet Cells Not Reportable 11/09/17 05:33 Jud[place] Bodies Not Reportable 11/09/17 05:33 [place] Rings Not Reportable 11/09/17 05:33 Wei Cells Not Reportable 11/09/17 05:33 Bite Cells Not Reportable 11/09/17 05:33 Crenated Cell Not Reportable 11/09/17 05:33 Elliptocytes Not Reportable 11/09/17 05:33 Acanthocytes (Spur) Not Reportable 11/09/17 05:33 Rouleaux Not Reportable 11/09/17 05:33 Hemoglobin C Crystals Not Reportable 11/09/17 05:33 Schistocytes Not Reportable 11/09/17 05:33 Malaria parasites Not Reportable 11/09/17 05:33 Louis Bodies Not Reportable 11/09/17 05:33 Hem Pathologist Commnt No 11/09/17 05:33 Sodium 135 mmol/L (137-145) L 11/09/17 05:33 Potassium 3.2 mmol/L (3.6-5.0) L 11/09/17 05:33 Chloride 95.9 mmol/L (98-107) L 11/09/17 05:33 Carbon Dioxide 25 mmol/L (22-30) 11/09/17 05:33 Anion Gap 17 mmol/L 11/09/17 05:33 BUN 8 mg/dL (9-20) L 11/09/17 05:33 Creatinine 0.8 mg/dL (0.8-1.5) 11/09/17 05:33 Estimated GFR > 60 ml/min 11/09/17 05:33 BUN/Creatinine Ratio 10 % 11/09/17 05:33 Glucose 116 mg/dL (75-100) H 11/09/17 05:33 Calcium 9.0 mg/dL (8.4-10.2) 11/09/17 05:33 Total Bilirubin 0.50 mg/dL (0.1-1.2) 11/07/17 10:57 Direct Bilirubin < 0.2 mg/dL (0-0.2) 11/07/17 10:57 Indirect Bilirubin 0.3 mg/dL 11/07/17 10:57 AST 19 units/L (5-40) 11/07/17 10:57 ALT 20 units/L (7-56) 11/07/17 10:57 Alkaline Phosphatase 61 units/L (35-129) 11/07/17 10:57 Total Creatine Kinase 90 units/L (55-170) 11/07/17 10:57 CK-MB (CK-2) < 1.0 ng/mL (0.0-4.0) 11/07/17 10:57 CK-MB (CK-2) Rel Index 1.1 (0-4) 11/07/17 10:57 Troponin T < 0.010 ng/mL (0.00-0.029) 11/07/17 10:57 Total Protein 8.7 g/dL (6.3-8.2) H 11/07/17 10:57 Albumin 4.6 g/dL (3.9-5) 11/07/17 10:57 Albumin/Globulin Ratio 1.1 % 11/07/17 10:57 Urine Color Red (Yellow) 11/07/17 11:22 Urine Turbidity Clear (Clear) 11/07/17 11:22 Urine pH 5.0 (5.0-7.0) 11/07/17 11:22 Ur Specific [place] 1.024 (1.003-1.030) 11/07/17 11:22 Urine Protein 100 mg/dl mg/dL (Negative) 11/07/17 11:22 Urine Glucose (UA) Neg mg/dL (Negative) 11/07/17 11:22 Urine Ketones Tr mg/dL (Negative) 11/07/17 11:22 Urine Blood Lg (Negative) 11/07/17 11:22 Urine Nitrite Neg (Negative) 11/07/17 11:22 Urine Bilirubin Neg (Negative) 11/07/17 11:22 Urine Urobilinogen < 2.0 mg/dL (<2.0) 11/07/17 11:22 Ur Leukocyte Esterase Lg (Negative) 11/07/17 11:22 Urine WBC (Auto) > 182.0 /HPF (0.0-6.0) H 11/07/17 11:22 Urine RBC (Auto) > 182.0 /HPF (0.0-6.0) 11/07/17 11:22 U Epithel Cells (Auto) 5.0 /HPF (0-13.0) 11/07/17 11:22 Urine WBC Clumps 3+ /HPF 11/07/17 11:22 Urine Mucus 3+ /HPF 11/07/17 11:22
[2017-11-10] MEDS: PERCOCET 5/325 PO PRN ×2 (16:05→21:47)
[2017-11-10] MEDS: TYLENOL PO PRN (20:08)
[2017-11-10] MEDS: LOVENOX SUB-Q SCH (21:49)
[2017-11-11] MEDS: MORPHINE IV PRN ×2 (01:52→10:36)
[2017-11-11] MEDS: NACL 0.9% 1000 ML 1,000 ML IV SCH (01:53)
[2017-11-11] MEDS: PERCOCET 5/325 PO PRN ×2 (07:08→14:31)
--- NOTE | 2017-11-11 07:30 | Consultation ---
History of Present Illness - Reason for Consult Consult date: 11/11/17 Medications and Allergies Allergies Allergy/AdvReac Type Severity Reaction Status Date / Time tramadol Allergy Vomiting Verified 10/03/17 22:03 Home Medications Medication Instructions Recorded Confirmed Last Taken Type Acetaminophen [Tylenol Extra 500 mg PO QID PRN 10/07/17 11/07/17 10/07/17 History Strength] Active Meds: Active Medications Acetaminophen (Tylenol) 650 mg PO Q4H PRN PRN Reason: Pain MILD(1-3)/Fever >100.5/PEREZ Last Admin: 11/10/17 20:08 Dose: 650 mg Alprazolam (Xanax) 0.5 mg PO TID [facility] Last Admin: 11/10/17 20:08 Dose: 0.5 mg Enoxaparin Sodium (Lovenox) 40 mg SUB-Q QDAY@2200 MARCIA Last Admin: 11/10/17 21:49 Dose: 40 mg Ceftriaxone Sodium 2 gm/ (Sodium Chloride) 20 mls @ 20 mls/10 min IV Q24HR MARCIA ; Protocol Last Admin: 11/10/17 10:00 Dose: 20 mls/10 min Sodium Chloride (Nacl 0.9% 1000 Ml) 1,000 mls @ 100 mls/hr IV DIRECT MARCIA Last Admin: 11/11/17 01:53 Dose: 100 mls/hr Metoclopramide HCl (Reglan) 5 mg IV Q6H PRN PRN Reason: Nausea And Vomiting Last Admin: 11/10/17 21:48 Dose: 5 mg Morphine Sulfate (Morphine) 4 mg IV Q4H PRN PRN Reason: Pain, Moderate (4-6) Last Admin: 11/11/17 01:52 Dose: 4 mg Ondansetron HCl (Zofran) 4 mg IV Q8H PRN PRN Reason: Nausea And Vomiting Last Admin: 11/10/17 20:08 Dose: 4 mg Oxycodone/Acetaminophen (Percocet 5/325) 2 tab PO Q8H PRN PRN Reason: Pain, Moderate (4-6) Last Admin: 11/11/17 07:08 Dose: 2 tab Polyethylene Glycol (Miralax 3350) 17 gm PO BID PRN PRN Reason: Constipation Sodium Chloride (Sodium Chloride Flush Syringe 10 Ml) 10 ml IV BID [facility] Last Admin: 11/10/17 21:54 Dose: 10 ml Sodium Chloride (Sodium Chloride Flush Syringe 10 Ml) 10 ml IV PRN PRN PRN Reason: LINE FLUSH Last Admin: 11/10/17 21:53 Dose: 10 ml Zolpidem Tartrate (Ambien) 5 mg PO QHS PRN PRN Reason: Insomnia Last Admin: 11/10/17 21:47 Dose: 5 mg Exam - Constitutional Vitals: Temp Pulse Resp BP Pulse Ox 97.7 F 49 L 18 109/73 100 11/11/17 04:26 11/11/17 04:26 11/11/17 04:26 11/11/17 04:26 11/11/17 04:26 Results - Labs CBC & Chem 7: 11/09/17 05:33 11/09/17 05:33 Assessment and Plan 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 Christie with bilateral stents in June noncompliant with his follow-up has been possibly been referred to [facility] [place] [facility] in the past has been aware of permanent damage sepsis and risks with chronic noncompliance discussed options nephrostomy tube disc stents and need for periodic change disc implications of hydro argumentative / hostile - pt states just send nurse here to discharge me schedule follow-up with his primary urologist who placed the stents on discharge schedule appointment
[2017-11-11] MEDS: XANAX PO SCH ×2 (08:53→14:32)
--- NOTE | 2017-11-11 09:48 | Progress Note ---
Hospitalist Physical - Constitutional Vitals: Temp Pulse Resp BP Pulse Ox 98.1 F 79 18 136/87 97 11/11/17 08:12 11/11/17 08:12 11/11/17 08:12 11/11/17 08:12 11/11/17 08:12 General appearance: Present: mild distress, well-nourished Results - Labs CBC & Chem 7: 11/09/17 05:33 11/09/17 05:33 Labs: Laboratory Last Values WBC 11.2 K/mm3 (4.5-11.0) H 11/09/17 05:33 RBC 3.97 M/mm3 (3.65-5.03) 11/09/17 05:33 Hgb 12.2 gm/dl (11.8-15.2) 11/09/17 05:33 Hct 35.7 % (35.5-45.6) 11/09/17 05:33 MCV 90 fl (84-94) 11/09/17 05:33 MCH 31 pg (28-32) 11/09/17 05:33 MCHC 34 % (32-34) 11/09/17 05:33 RDW 12.9 % (13.2-15.2) L 11/09/17 05:33 Plt Count 218 K/mm3 (140-440) 11/09/17 05:33 Lymph % (Auto) 17.1 % (13.4-35.0) 11/08/17 09:35 [place] % (Auto) [employer]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 11/09/17 05:33 Eos % (Auto) 0.6 % (0.0-4.3) 11/08/17 09:35 Baso % (Auto) 0.2 % (0.0-1.8) 11/08/17 09:35 Lymph # 1.6 K/mm3 (1.2-5.4) 11/08/17 09:35 [place] # 1.2 K/mm3 (0.0-0.8) H 11/08/17 09:35 Eos # 0.1 K/mm3 (0.0-0.4) 11/08/17 09:35 Baso # 0.0 K/mm3 (0.0-0.1) 11/08/17 09:35 Add Manual Diff Complete 11/09/17 05:33 Total Counted 100 11/09/17 05:33 Seg Neutrophils % 69.7 % (40.0-70.0) 11/08/17 09:35 Seg Neuts % (Manual) 78.0 % (40.0-70.0) H 11/09/17 05:33 Band Neutrophils % 2.0 % 11/09/17 05:33 Lymphocytes % (Manual) 12.0 % (13.4-35.0) L 11/09/17 05:33 Reactive Lymphs % (Man) 0 % 11/09/17 05:33 Monocytes % (Manual) 8.0 % (0.0-7.3) H 11/09/17 05:33 Eosinophils % (Manual) 0 % (0.0-4.3) 11/09/17 05:33 Basophils % (Manual) 0 % (0.0-1.8) 11/09/17 05:33 Metamyelocytes % 0 % 11/09/17 05:33 Myelocytes % 0 % 11/09/17 05:33 Promyelocytes % 0 % 11/09/17 05:33 Blast Cells % 0 % 11/09/17 05:33 Nucleated RBC % Not Reportable 11/09/17 05:33 Seg Neutrophils # 6.6 K/mm3 (1.8-7.7) 11/08/17 09:35 Seg Neutrophils # Man 8.7 K/mm3 (1.8-7.7) H 11/09/17 05:33 Band Neutrophils # 0.2 K/mm3 11/09/17 05:33 Lymphocytes # (Manual) 1.3 K/mm3 (1.2-5.4) 11/09/17 05:33 Abs React Lymphs (Man) 0.0 K/mm3 11/09/17 05:33 Monocytes # (Manual) 0.9 K/mm3 (0.0-0.8) H 11/09/17 05:33 Eosinophils # (Manual) 0.0 K/mm3 (0.0-0.4) 11/09/17 05:33 Basophils # (Manual) 0.0 K/mm3 (0.0-0.1) 11/09/17 05:33 Metamyelocytes # 0.0 K/mm3 11/09/17 05:33 Myelocytes # 0.0 K/mm3 11/09/17 05:33 Promyelocytes # 0.0 K/mm3 11/09/17 05:33 Blast Cells # 0.0 K/mm3 11/09/17 05:33 WBC Morphology Not Reportable 11/09/17 05:33 Hypersegmented Neuts Not Reportable 11/09/17 05:33 Hyposegmented Neuts Not Reportable 11/09/17 05:33 Hypogranular Neuts Not Reportable 11/09/17 05:33 Smudge Cells Not Reportable 11/09/17 05:33 Toxic Granulation Not Reportable 11/09/17 05:33 Toxic Vacuolation Not Reportable 11/09/17 05:33 Dohle Bodies Not Reportable 11/09/17 05:33 Pelger-Huet Anomaly Not Reportable 11/09/17 05:33 Peter Rods Not Reportable 11/09/17 05:33 Platelet Estimate Appears normal 11/09/17 05:33 Clumped Platelets Not Reportable 11/09/17 05:33 Plt Clumps, EDTA Not Reportable 11/09/17 05:33 Large Platelets Few 11/09/17 05:33 Giant Platelets Not Reportable 11/09/17 05:33 Platelet Satelliting Not Reportable 11/09/17 05:33 Plt Morphology Comment Not Reportable 11/09/17 05:33 RBC Morphology Normal 11/09/17 05:33 Dimorphic RBCs Not Reportable 11/09/17 05:33 Polychromasia Not Reportable 11/09/17 05:33 Hypochromasia Not Reportable 11/09/17 05:33 Poikilocytosis Not Reportable 11/09/17 05:33 Anisocytosis Not Reportable 11/09/17 05:33 Microcytosis Not Reportable 11/09/17 05:33 Macrocytosis Not Reportable 11/09/17 05:33 Spherocytes Not Reportable 11/09/17 05:33 Pappenheimer Bodies Not Reportable 11/09/17 05:33 Sickle Cells Not Reportable 11/09/17 05:33 Target Cells Not Reportable 11/09/17 05:33 Tear Drop Cells Not Reportable 11/09/17 05:33 Ovalocytes Not Reportable 11/09/17 05:33 Helmet Cells Not Reportable 11/09/17 05:33 Judd-[place] Bodies Not Reportable 11/09/17 05:33 [place] Rings Not Reportable 11/09/17 05:33 [place] Cells Not Reportable 11/09/17 05:33 Bite Cells Not Reportable 11/09/17 05:33 Crenated Cell Not Reportable 11/09/17 05:33 Elliptocytes Not Reportable 11/09/17 05:33 Acanthocytes (Spur) Not Reportable 11/09/17 05:33 Rouleaux Not Reportable 11/09/17 05:33 Hemoglobin C Crystals Not Reportable 11/09/17 05:33 Schistocytes Not Reportable 11/09/17 05:33 Malaria parasites Not Reportable 11/09/17 05:33 Louis Bodies Not Reportable 11/09/17 05:33 Hem Pathologist Commnt No 11/09/17 05:33 Sodium 135 mmol/L (137-145) L 11/09/17 05:33 Potassium 3.2 mmol/L (3.6-5.0) L 11/09/17 05:33 Chloride 95.9 mmol/L (98-107) L 11/09/17 05:33 Carbon Dioxide 25 mmol/L (22-30) 11/09/17 05:33 Anion Gap 17 mmol/L 11/09/17 05:33 BUN 8 mg/dL (9-20) L 11/09/17 05:33 Creatinine 0.8 mg/dL (0.8-1.5) 11/09/17 05:33 Estimated GFR > 60 ml/min 11/09/17 05:33 BUN/Creatinine Ratio 10 % 11/09/17 05:33 Glucose 116 mg/dL (75-100) H 11/09/17 05:33 Calcium 9.0 mg/dL (8.4-10.2) 11/09/17 05:33 Total Bilirubin 0.50 mg/dL (0.1-1.2) 11/07/17 10:57 Direct Bilirubin < 0.2 mg/dL (0-0.2) 11/07/17 10:57 Indirect Bilirubin 0.3 mg/dL 11/07/17 10:57 AST 19 units/L (5-40) 11/07/17 10:57 ALT 20 units/L (7-56) 11/07/17 10:57 Alkaline Phosphatase 61 units/L (35-129) 11/07/17 10:57 Total Creatine Kinase 90 units/L (55-170) 11/07/17 10:57 CK-MB (CK-2) < 1.0 ng/mL (0.0-4.0) 11/07/17 10:57 CK-MB (CK-2) Rel Index 1.1 (0-4) 11/07/17 10:57 Troponin T < 0.010 ng/mL (0.00-0.029) 11/07/17 10:57 Total Protein 8.7 g/dL (6.3-8.2) H 11/07/17 10:57 Albumin 4.6 g/dL (3.9-5) 11/07/17 10:57 Albumin/Globulin Ratio 1.1 % 11/07/17 10:57 Urine Color Red (Yellow) 11/07/17 11:22 Urine Turbidity Clear (Clear) 11/07/17 11:22 Urine pH 5.0 (5.0-7.0) 11/07/17 11:22 Ur Specific [place] 1.024 (1.003-1.030) 11/07/17 11:22 Urine Protein 100 mg/dl mg/dL (Negative) 11/07/17 11:22 Urine Glucose (UA) Neg mg/dL (Negative) 11/07/17 11:22 Urine Ketones Tr mg/dL (Negative) 11/07/17 11:22 Urine Blood Lg (Negative) 11/07/17 11:22 Urine Nitrite Neg (Negative) 11/07/17 11:22 Urine Bilirubin Neg (Negative) 11/07/17 11:22 Urine Urobilinogen < 2.0 mg/dL (<2.0) 11/07/17 11:22 Ur Leukocyte Esterase Lg (Negative) 11/07/17 11:22 Urine WBC (Auto) > 182.0 /HPF (0.0-6.0) H 11/07/17 11:22 Urine RBC (Auto) > 182.0 /HPF (0.0-6.0) 11/07/17 11:22 U Epithel Cells (Auto) 5.0 /HPF (0-13.0) 11/07/17 11:22 Urine WBC Clumps 3+ /HPF 11/07/17 11:22 Urine Mucus 3+ /HPF 11/07/17 11:22
[2017-11-11] MEDS: SODIUM CHLORIDE FLUSH SYRINGE 10 ML IV SCH (10:37)
[2017-11-11] MEDS: cefTRIAXone 2 GM in NACL 0.9% 20 ML IV SCH (10:37)
[2017-11-11 10:38] LABS: BUN/Creatinine Ratio 13; Blood Urea Nitrogen 8 mg/dL (9-20); Calcium 9.1 mg/dL (8.4-10.2); Hemolysis Index 2
[2017-11-11] MEDS ORDERED: DILAUDID IV PRN (11:06)
--- NOTE | 2017-11-11 11:41 | Discharge Summary ---
<GERALDO PAREDES - Last Filed: 11/11/17 14:08> Providers - Providers Date of Admission: 11/07/17 14:32 Date of discharge: 11/11/17 Attending physician: JESSICA TYLER MD 11/07/17 23:36 Consult to Physician [CONS] Routine Comment: Consulting Provider: MINO BAZAN Physician Instructions: Reason For Exam: Pyelonephritis 11/09/17 07:40 Consult to Physician [CONS] Routine Comment: Consulting Provider: ANGELA ISRAEL Physician Instructions: Reason For Exam: twiching of the face and the right arm Primary care physician: AMARILYS CORLEY Hospitalization Condition: Stable Pertinent studies: CT of the abdomen and pelvis reveal Bilateral ureteral stents remain in place with new moderate right hydronephrosis and significant decrease left hydronephrosis with slight residual Nonobstructing bilateral renal calculi Scattered prominence of small and large bowel gas, without gross distention, may reflect paralytic ileus X-ray of the chest and abdomen revealed No acute radiographic abnormality with few iatrogenic changes, as above. Head CT was normal Hospital course: 27-year-old male admitted with chief complaint of bilateral flank pain. Patient had bilateral double-J ureteral stents placed in June 2017 for ureteric obstruction. Patient was found to be septic with acute pyelonephritis and was placed on IV antibiotics and analgesics for pain. Urine culture grew enterococcus species and Staphylococcus saprophyticus. Urologist was consulted, who discussed nephrostomy tube as an option, discussed stents and need for periodic change. Dr Kendrick advised that pt schedule follow-up with his primary urologist (Dr Christie) who placed the stents. Patient had acute kidney injury, likely secondary to acute pyelonephrosis and was treated with IVF after which his kidney function normalized. Patient was also treated with Potassium replacement for hypokalemia. Patient is being discharged on antibiotics Advised to follow with private urologist per schedule Discharge diagnosis: Pyelonephritis with hydronephrosis Hypokalemia Acute kidney injury Disposition: DC- TO HOME OR SELFCARE Time spent for discharge: 32 minutes Core Measure Documentation - Palliative Care Palliative Care/ Comfort Measures: Not Applicable - Core Measures Any of the following diagnoses?: none Exam - Constitutional Vitals: Temp Pulse Resp BP Pulse Ox 98.1 F 79 18 136/87 97 11/11/17 08:12 11/11/17 08:12 11/11/17 08:12 11/11/17 08:12 11/11/17 08:12 General appearance: Present: no acute distress, well-nourished - EENT Eyes: Present: PERRL ENT: hearing intact, clear oral mucosa - Neck Neck: Present: supple, normal ROM - Respiratory Respiratory effort: normal Respiratory: bilateral: CTA - Cardiovascular Heart Sounds: Present: S1 & S2. Absent: rub, click - Extremities Extremities: pulses symmetrical, No edema Peripheral Pulses: within normal limits - Abdominal General gastrointestinal: Present: soft, tender (bilateral flank tenderness), non-distended, normal bowel sounds - Integumentary Integumentary: Present: clear, warm, dry - Musculoskeletal Musculoskeletal: gait normal, strength equal bilaterally - Psychiatric Psychiatric: appropriate mood/affect, intact judgment & insight - Neurologic Neurologic: CNII-XII intact, moves all extremities Plan Activity: advance as tolerated Weight Bearing Status: Weight Bear as Tolerated Diet: regular Additional Instructions: Follow-up with your urologist Dr Christie within 5 days of discharge Follow up with: AMARILYS CORLEY MD [Primary Care Provider] - 3-5 Days Prescriptions: oxyCODONE ER [OxyCONTIN ER TAB] 10 mg PO Q12HR #12 tablet Levofloxacin [Levaquin TAB] 500 mg PO Q48HR #5 tablet <JESSICA TYLER - Last Filed: 11/11/17 18:51> Providers - Providers Date of Admission: 11/07/17 14:32 Attending physician: JESSICA TYLER MD 11/07/17 23:36 Consult to Physician [CONS] Routine Comment: Consulting Provider: MINO BAZAN Physician Instructions: Reason For Exam: Pyelonephritis 11/09/17 07:40 Consult to Physician [CONS] Routine Comment: Consulting Provider: ANGELA ISRAEL Physician Instructions: Reason For Exam: twiching of the face and the right arm Primary care physician: AMARILYS CORLEY Hospitalization Reason for admission: Pyelonephritis, Bilateral ureteral stent Hospital course: Patient was ok until this morning when he was told he can be discharged per urology recommendations. After that the patient become hostile and argumentative and he talk continuously and claimed he was not treated in the right way. our neurologist evaluated him and recommend to follow up with his urologist as an o/p. Patient was non compliant with treatment. Patient was discharged with levaquin and percocet. - Discharge Diagnoses (1) Ureteral stent retained Status: Chronic (2) SILVIA (acute kidney injury) Status: Acute (3) Acute pyelonephritis Status: Acute (4) Leukocytosis Status: Acute (5) Nausea & vomiting Status: Acute (6) SIRS (systemic inflammatory response syndrome) Status: Acute Core Measure Documentation - Palliative Care Palliative Care/ Comfort Measures: Not Applicable - Core Measures Any of the following diagnoses?: none Exam - Constitutional Vitals: Temp Pulse Resp BP Pulse Ox 97.2 F L 79 16 125/73 97 11/11/17 11:30 11/11/17 11:30 11/11/17 11:30 11/11/17 11:30 11/11/17 11:30
[2017-11-11 12:02] VITALS: BP 125/73
[2017-11-11] MEDS ORDERED: K-DUR PO SCH (14:00)
== END 2017-11-11 15:00 | disposition home or self-care (01) | DRG 872 ==
LOC: ED 10:12 → 3A 14:32
PROVIDERS: ADMIT Internal Medicine; ATTEND Internal Medicine
DX: A41.9 Sepsis, unspecified organism (principal); N17.9 Acute kidney failure, unspecified; N13.6 Pyonephrosis; R65.10 Systemic inflammatory response syndrome (SIRS) of non-infectious origin without acute organ dysfunction; F17.200 Nicotine dependence, unspecified, uncomplicated; B95.2 Enterococcus as the cause of diseases classified elsewhere; B95.7 Other staphylococcus as the cause of diseases classified elsewhere; D72.829 Elevated white blood cell count, unspecified; E87.6 Hypokalemia; Z87.442 Personal history of urinary calculi; Z88.6 Allergy status to analgesic agent; Z91.14 Patient's other noncompliance with medication regimen
CPT/HCPCS: 36415; 70450; 74022; 74176; 80048; 80074; 81001; 82550; 82553; 84484; 85007; 85025; 87076; 87086; 87186; 93005; 93010; 96361; 96365; 96375; J0696; J1650; J1885; J2060; J2270; J2405; J2765; J3010; J7030; J7042

== ENCOUNTER 2018-01-28 23:56 | Emergency (ER) | payer SELFPAY ==
[2018-01-29] MEDS ORDERED: ZOFRAN IV ONE (00:11)
[2018-01-29] MEDS ORDERED: MORPHINE ONE (00:15)
[2018-01-29] MEDS ORDERED: NACL 0.9% 1000 ML 1,000 ML ONE (00:16)
--- NOTE | 2018-01-29 00:20 | Emergency Department Report ---
ED Abdominal Pain HPI - General Chief Complaint: Abdominal Pain Stated Complaint: BACK PAIN Time Seen by Provider: 01/29/18 00:16 Source: patient, family, EMS Mode of arrival: Stretcher Limitations: No Limitations - History of Present Illness Initial Comments: Patient is 27 years old male with history of multiple kidney stones and bilateral ureteric stents. Patient presented to the ER complaining of left flank pain for the last 2-3 days. Patient was really diaphoretic when he came in actively vomiting. Patient denied any fever or diarrhea. MD Complaint: abdominal pain, flank pain -: week(s) Location: L flank Radiation: suprapubic Migration to: no migration Severity: severe Severity scale (0 -10): 8 Quality: sharp Improves With: vomiting Associated Symptoms: nausea, vomiting, hematuria - Related Data Home Medications Medication Instructions Recorded Confirmed Last Taken Acetaminophen [Tylenol Extra 500 mg PO QID PRN 10/07/17 11/07/17 10/07/17 Strength] Previous Rx's Medication Instructions Recorded Last Taken Type Levofloxacin [Levaquin TAB] 500 mg PO Q48HR #5 tablet 11/11/17 Unknown Rx oxyCODONE ER [OxyCONTIN ER TAB] 10 mg PO Q12HR #12 tablet 11/11/17 Unknown Rx Allergies Allergy/AdvReac Type Severity Reaction Status Date / Time tramadol Allergy Vomiting Verified 10/03/17 22:03 ED Review of Systems ROS: Stated complaint: BACK PAIN Other details as noted in HPI Comment: All other systems reviewed and negative Constitutional: denies: chills, fever Respiratory: denies: cough Cardiovascular: denies: chest pain, palpitations Gastrointestinal: abdominal pain, nausea, vomiting. denies: diarrhea, constipation, hematemesis, melena, hematochezia Genitourinary: hematuria Neurological: denies: headache, weakness ED Past Medical Hx - Past Medical History Previous Medical History?: Yes Hx Congestive Heart Failure: No Hx Kidney Stones: Yes Additional medical history: kidney problems - Surgical History Hx Appendectomy: Yes Additional Surgical History: stents placed in both kidneys in Jun - Social History Smoking Status: Never Smoker - Medications Home Medications: Home Medications Medication Instructions Recorded Confirmed Last Taken Type Acetaminophen [Tylenol Extra 500 mg PO QID PRN 10/07/17 11/07/17 10/07/17 History Strength] Levofloxacin [Levaquin TAB] 500 mg PO Q48HR #5 tablet 11/11/17 Unknown Rx oxyCODONE ER [OxyCONTIN ER TAB] 10 mg PO Q12HR #12 tablet 11/11/17 Unknown Rx ED Physical Exam - General Limitations: No Limitations General appearance: in distress, other (diaphoretic) - Head Head exam: Present: atraumatic, normocephalic, normal inspection - Eye Eye exam: Present: normal appearance - ENT ENT exam: Present: mucous membranes dry - Neck Neck exam: Present: normal inspection, full ROM. Absent: tenderness, meningismus, lymphadenopathy, thyromegaly - Respiratory Respiratory exam: Present: normal lung sounds bilaterally - Cardiovascular Cardiovascular Exam: Present: regular rate, normal rhythm, normal heart sounds - GI/Abdominal GI/Abdominal exam: Present: soft, normal bowel sounds. Absent: distended, tenderness, guarding, rebound, rigid, organomegaly, mass, bruit, pulsatile mass , hernia - Back Exam Back exam: Present: normal inspection, full ROM, CVA tenderness (L). Absent: tenderness, CVA tenderness (R) - Neurological Exam Neurological exam: Present: alert, oriented X3, CN II-XII intact, normal gait - Skin Skin exam: Present: warm, dry, intact ED Course Vital Signs 01/29/18 01/29/18 01/29/18 00:07 01:06 04:33 Temperature 97.9 F Pulse Rate 78 65 81 Respiratory 24 20 18 Rate Blood Pressure 121/81 Blood Pressure 122/80 120/68 [Left] O2 Sat by Pulse 100 100 100 Oximetry ED Medical Decision Making - Lab Data Result diagrams: 01/29/18 00:19 01/29/18 00:19 Critical care attestation.: If time is entered above; I have spent that time in minutes in the direct care of this critically ill patient, excluding procedure time. ED Disposition Clinical Impression: Left flank pain, UTI (urinary tract infection) Disposition: - TO HOME OR SELFCARE Is pt being admited?: No Condition: Stable Instructions: Flank Pain (ED), Urinary Tract Infection in Men (ED) Referrals: PRIMARY CARE,MD [Primary Care Provider] - 3-5 Days
[2018-01-29] MEDS ORDERED: MORPHINE IV ONE (00:28)
[2018-01-29] MEDS ORDERED: NACL 0.9% 1000 ML 1,000 ML IV ONE (00:29)
[2018-01-29 00:35] LABS: Basophils # (Auto) 0.1 K/mm3 (0.0-0.1); Basophils % (Auto) 0.7 % (0.0-1.8); Eosinophils # (Auto) 0.1 K/mm3 (0.0-0.4); Eosinophils % (Auto) 1.5 % (0.0-4.3); Hematocrit 43.5 % (35.5-45.6); Hemoglobin 14.1 gm/dl (11.8-15.2); Lymphocytes # (Auto) 2.6 K/mm3 (1.2-5.4); Mean Corpuscular HGB Conc 32 % (32-34); Mean Corpuscular Hemoglobin 29 pg (28-32); Mean Corpuscular Volume 91 fl (84-94); Monocytes # (Auto) 0.6 K/mm3 (0.0-0.8); Monocytes % (Auto) 5.8 % (0.0-7.3); Platelet Count 370 K/mm3 (140-440); Red Cell Distribution Width 13.8 % (13.2-15.2)
[2018-01-29 01:01] LABS: Alanine Aminotransferase 18 units/L (7-56); Albumin 4.9 g/dL (3.9-5); BUN/Creatinine Ratio 18; Blood Urea Nitrogen 16 mg/dL (9-20); Calcium 10.3 mg/dL (8.4-10.2); Hemolysis Index 10
[2018-01-29] MEDS ORDERED: SUBLIMAZE IV ONE (03:20)
--- NOTE | 2018-01-29 03:20 | Cat Scan Report ---
FINAL REPORT EXAM: CT ABDOMEN PELVIS WO CON HISTORY: Left Flank Pain TECHNIQUE: Routine axial imaging was obtained of the abdomen and pelvis without oral or IV contrast. Sagittal and coronal reconstructions were reviewed. Comparison is made to the study of 11/07/2017. FINDINGS: The lung bases are clear. Pleural fluid is not identified. The liver, gallbladder, pancreas, spleen, and adrenal glands appear normal. There are double-J stents in good position within both renal collecting system. On the left side there is moderate hydronephrosis without perinephric stranding. This has occurred since previous study. On the right side there is no evidence of hydronephrosis. Renal calculi are not identified. The bowel loops are normal in caliber and course. There is no evidence of free fluid or adenopathy. In the pelvis the prostate gland and bladder otherwise are unremarkable. There are phleboliths along the floor of the pelvis. The skeletal structures do not show any acute changes. IMPRESSION: Double-J ureteral stents in good position in both collecting system. [id number] left-sided hydronephrosis since previous study. No evidence of perinephric stranding. No evidence of nonobstructing stones in either kidney.
[2018-01-29 04:34] VITALS: BP 120/68
[2018-01-29 05:47] LABS: Color,Urine Amber (Yellow)
[2018-01-29 05:52] LABS: Bilirubin,Urine Negative (Negative); Blood,Urine LG (Negative); Urobilinogen,Urine < 2.0 mg/dL (<2.0)
[2018-01-29 05:53] LABS: Bacteria,Urine 2+ /HPF (Negative); Mucus,Urine 1+ /HPF; RBC,Urine > 182.0 /HPF (0.0-6.0); WBC,Urine > 182.0 /HPF (0.0-6.0)
[2018-01-29] MEDS ORDERED: ROCEPHIN/NS 1 GM/50 ML 1 GM/50 ML BAG IV ONE (05:58)
[2018-01-29] MEDS ORDERED: TORADOL IV ONE (06:03)
== END 2018-01-29 07:32 | disposition home or self-care (01) ==
LOC: ED 23:56
DX: N39.0 Urinary tract infection, site not specified (principal); Z88.6 Allergy status to analgesic agent
CPT/HCPCS: 36415; 74176; 80053; 81001; 85025; 96361; 96365; 96375; 99284; J0696; J1885; J2270; J2405; J7030; 96374